=== PATIENT | male | born 1955 | race Caucasian/White ===

== ENCOUNTER 2018-11-05 19:43 | Inpatient (IN) | payer OTHER ==
[~2018-11-05] VITALS: Ht 182.9 cm; Wt 56.3 kg
[~2018-11-05 19:43] MED LIST: ONDA4TAB13 PO; PERCOCET PO; POLY17PO6 PO; RIVA20TA5 PO
[2018-11-06] VITALS (13 sets, daily range): BP systolic 100–117; BP diastolic 65–78; PULSE 95–129; RESP 17–20; Ht 182.9 cm; Wt 56.3 kg
[2018-11-06] MEDS ORDERED: SOD CHLORIDE 0.9% 250 ML IV ONE (02:30)
[2018-11-06] MEDS ORDERED: ZOLPIDEM 5 MG TAB PO PRN (02:30)
[2018-11-06] MEDS ORDERED: CEFTRIAXONE 1 GM/50 ML (PMX) 50 ML IVPB SCH (04:00)
[2018-11-06] MEDS: DEXTROSE 5%-0.45% NACL 1,000 ML IV SCH ×2 (04:00→17:24)
[2018-11-06] MEDS: HYDROCODONE/APAP (10/325) TAB PO PRN (04:09)
[2018-11-06] MEDS ORDERED: PENDING SANTYL ORDER FOR WOUND CARE XX PRN (05:00)
[2018-11-06] MEDS ORDERED: ONDANSETRON 4 MG INJ IV PRN (07:00)
[2018-11-06] MEDS: CREON (24K-76K-120K) 1 CAP PO SCH ×3 (08:00→18:36)
[2018-11-06] MEDS: morphine 2 MG INJ IV PRN ×2 (11:52→22:43)
--- NOTE | 2018-11-06 13:31 | HP ---
Date/Time of Note Date/Time of Note DATE: 11/06/18 TIME: 13:31 Assessment/Plan VTE Prophylaxis [place] [facility] risk: 5 SCD applied (from [facility] Yes Pharmacological prophylaxis: NA/contraindicated, rivaroxaban Pharm contraindication: anticoag not tolerated Lines/Catheters IV Catheter Type (from [facility] Ruiz Central line still needed: Yes Urinary Cath still in place: No Assessment/Plan Hospital Course 1. PAncreatic cancer stage IV, pt has has bone meth. After Neulasta chemotherapy 2. Cachexia. 3. Anemia 4. dehydration 5. right periorbital edema 6. Leucocytosis more likely to # 1, after Neulasta. UA is normal, chest toni is normal 7. S/p ERCP with the stent placement by dr Benavides 8. hx of right inguinal hernia repair 2014 9. Hx of clot in his right leg 10. Hx of hyperbilirubinemia 11. Port a cath right chest 12. DNR status 13. Abnormal liver function test 14.hyperbilirubinemia 15. Hypercalcemia 16. insomnia Assessment/Plan -full liquid diet -reglan scheduled -dr Benavides is GI consult -no need oncology consult -c/w IV fluids -c/w PAin meds. -start full liquid diet -GI proph. start Protonix -DVT proph. pt os on Xarelt due to clot in his right leg Result Diagram: 11/06/18 0459 11/06/18 0459 Results 24hrs Laboratory Tests Test 11/06/18 04:59 White Blood Count 33.2 #H Red Blood Count 2.69 #L Hemoglobin 8.5 #L Hematocrit 24.7 #L Mean Corpuscular Volume 91.8 Mean Corpuscular Hemoglobin 31.6 Mean Corpuscular Hemoglobin Concent 34.4 Red Cell Distribution Width 15.9 #H Platelet Count 44 L Mean Platelet Volume 11.9 #H Immature Granulocytes % 1.500 H Neutrophils % Segmented Neutrophils % (Manual) 92 H Band Neutrophils % (Manual) 1 Lymphocytes % Lymphocytes % (Manual) 1 L Monocytes % Monocytes % (Manual) 6 Eosinophils % Basophils % Nucleated Red Blood Cells % 0.1 H Immature Granulocytes # 0.500 H Neutrophils # Neutrophils # (Manual) 30.6 H Band Neutrophils # 0.3 Lymphocytes (Manual) 0.3 L Lymphocytes # Monocytes # Monocytes # (Manual) 1.9 H Eosinophils # Basophils # Nucleated Red Blood Cells # Pathologist Review (Hematology) YES Toxic Granulation 1+ Platelet Estimate SIG DECREASED Hypochromasia 2+ Poikilocytosis 1+ Anisocytosis 1+ Macrocytosis 1+ Target Cells 1+ Sodium Level 136 Potassium Level 4.0 Chloride Level 102 Carbon Dioxide Level 27 Anion Gap 7 Blood Urea Nitrogen 12 Creatinine 0.33 L Est Glomerular Filtrat Rate mL/min > 60 Glucose Level 70 Calcium Level 10.4 H Total Bilirubin 2.1 H Direct Bilirubin 1.00 H Indirect Bilirubin 1.1 Aspartate Amino Transf (AST/SGOT) 58 H Alanine Aminotransferase (ALT/SGPT) 43 Alkaline Phosphatase 809 H Total Protein 6.2 Albumin 2.2 L Globulin 4.00 H Albumin/Globulin Ratio 0.55 HPI/ROS Admit Date/Time Admit Date/Time November 05, 2018 at 23:47 Hx of Present Illness This 63-year-old male was transferred from [facility] today due to insurance purposes. He has a history of stage IV pancreatic cancer, anemia, dehydration , transaminitis, hyperbilirubinemia and elevated alkaline phosph atase. Patient was diagnosed with pancreatic cancer June 04, 2018. Then he underwent via ERCP a stent placement by Dr. Benavides, he underwent new few courses of chemotherapy the last 1 was of using Neulasta. That was 3 weeks ago. He consequently developed a low platelets, nausea , no appetite and malaise. His oncologist sent him to [facility] due to dehydration. Patient was seen on November 05, 2018 and [facility] was done some studies; blood culture, urine was analyzed and patient was transferred to [facility] of that is his hospital per Insurance. Sepsis was ruled out there. On admission WBC 34.3 RBC 2.68 hemoglobin 8.7 hematocrit 25 platelets 41 sodium 121 potassium 3.8 chloride 95 CO2 25 anion gap 11 BUN 11 creatinine 0.4 blood sugar 114 calcium 10.1 that is elevated total bilirubin 3.6 AST of 48 LDL 36 alkaline phosphatase 8012 total protein 6.5 urinalysis is normal negative for any infection lactic acid 2.3. CT scan shows no acute process, chest x-ray shows no acute process, EKG sinus tachycardia right bundle branch block, no ectopy. Social history denies drugs, any smoking or alcohol intake, Lives with his . Surgical history; ERCP 2018, status post herniorrhaphy by Dr. Bryant 2014. ROS weak Gastrointestinal: pain, diarrhea, nausea; No no complaints, No blood, No constipation, No decreased appetite, No flatus, No passing stool, No vomiting, No other Neurologic: no complaints PMH/Family/Social Past Medical History Medical History: deep vein thrombosis Medications Current Medications Dextrose/Sodium Chloride 1,000 ml @ 75 mls/hr [id number] IV Last administered on 11/06/18at 04:00; Admin Dose 75 MLS/HR; Start 11/06/18 at 02:30 Acetaminophen/ Hydrocodone Bitart ([place] (10/325)) 1 tab Q6H PRN PO MODERATE PAIN LEVEL 4-6 Last administered on 11/06/18at 04:09; Admin Dose 1 TAB; Start 11/06/18 at 02:30 Rivaroxaban (Xarelto) 20 mg WITH DINNER PO ; Start 11/06/18 at 18:00 Zolpidem Tartrate (Ambien) 10 mg HS PRN PO INSOMNIA; Start 11/06/18 at 02:30 Amylase/Lipase/ Protease (Creon ([id number])) 1 cap WITH MEALS PO ; Start 11/06/18 at 08:00 Ceftriaxone Sodium 50 ml @ 100 mls/hr Q24H IVPB Last administered on 11/06/18at 04:05; Admin Dose 100 MLS/HR; Start 11/06/18 at 04:00 Miscellaneous Information (Pending Santyl Order For Wound Care) This patient kingsley... PRN PRN XX WOUND CARE; Start 11/06/18 at 05:00 Ondansetron HCl (Zofran Inj) 4 mg Q6H PRN IV NAUSEA AND/OR VOMITING; Start 11/06/18 at 07:00 Morphine Sulfate (morphine) 2 mg Q4H PRN IV SEVERE PAIN LEVEL 7-10; Start at 12:00 Coded Allergies: No Known Allergy (Unverified , 12/05/14) Past Surgical History Past Surgical Hx: other (ERCP, herniorrhaphy) Family History Significant Family History: no pertinent family hx Social History Alcohol Use: none Smoking Status: Current every day smoker Drug Use: none Exam/Review of Systems Vital Signs Vitals Vital Signs Date Temp Pulse Resp B/P (MAP) Pulse Ox O2 O2 Flow FiO2 Time Delivery Rate 11/06/18 97.5 104 20 111/78 100 11:36 (89) 11/06/18 Room Air 00:41 Exam Constitutional: alert, oriented Eyes: other (right periorbital edema) Respiratory: clear to auscultation Cardiovascular: regular rate and rhythm Gastrointestinal: soft Genitourinary - Male: CVA tenderness; No nl penis, No nl scrotum, No discharge, No other Skin: other (dry lips) JESSIKA ABRAHAM November 06, 2018 13:31
--- NOTE | 2018-11-06 16:52 | CONS ---
DATE OF ADMISSION: 11/05/2018 DATE OF CONSULTATION: HISTORY OF PRESENT ILLNESS: A 63-year-old male with a history of pancreatic cancer, status post bili ken stent, had a chemotherapy by his oncologist. For 3 months, he did not respond to . The pat ient was placed on Neulasta, and because of his profound weakness, patient had gone to [facility] and was subsequently transferred to this facility for further management. Patient has been los ing weight. He is also cachectic. His p.o. intake has been very poor. REVIEW OF SYSTEMS: Negative. ALLERGIES: NONE. MEDICATIONS: All reviewed. PHYSICAL EXAMINATION: VITALS: Stable. HEENT: Unremarkable. NECK: Supple, no thyromegaly, no lymphadenopathy. CARDIOVASCULAR SYSTEM: No murmur, gallop or click. LUNGS: Clear. ABDOMEN: Benign. EXTREMITIES: No edema. CENTRAL NERVOUS SYSTEM: Grossly within normal limits. IMPRESSION: 1. Pancreatic cancer stage IV. Patient is on chemo. 2. Cachexia. 3. Weight loss. 4. Anorexia. 5. Leukocytosis, most probably related to Neulasta, but again cholangitis cannot be absolutely ruled out. 6. Status post ERCP, placement of stent. 7. Port-A-Cath in the right chest. 8. Abnormal LFT. 9. Insomnia. PLAN: At this point, is to continue antibiotic. We will monitor LFT. We will start the patient on Marinol. Megace at this point is contraindicated given the history of DVT. Patient also will be guy juan francisco on TPN. Continue with the Reglan and nutritional supplement. Discussed with the , who was b y the side of the patient. Dictated By: TORIBIO KIRAN/AMY Conf#: [id number] DID#: [id number] CC: MARGARITA JARQUIN MD; ADAM TRINIDAD;*EndCC*
[2018-11-06] MEDS: FAT EMULSION 20% 250 ML IV SCH (17:24)
[2018-11-06] MEDS ORDERED: RIVAROXABAN 20 MG TABLET PO SCH (18:00)
[2018-11-06] MEDS: PANTOPRAZOLE 40 MG INJ IV SCH (18:36)
[2018-11-06] MEDS: METOCLOPRAMIDE 10 MG INJ IV SCH (18:36)
[2018-11-06] MEDS: CEFEPIME 1GM/50 ML (PMX) 50 ML IVPB SCH (20:36)
[2018-11-07] VITALS (12 sets, daily range): BP systolic 95–117; BP diastolic 52–75; PULSE 96–119; RESP 17–18
[2018-11-07] MEDS: HYDROCODONE/APAP (10/325) TAB PO PRN ×4 (03:11→20:48)
[2018-11-07] MEDS: DEXTROSE 5%-0.45% NACL 1,000 ML IV SCH ×3 (05:10→17:33)
[2018-11-07] MEDS: PANTOPRAZOLE 40 MG INJ IV SCH ×2 (05:54→17:33)
[2018-11-07] MEDS: CEFEPIME 1GM/50 ML (PMX) 50 ML IVPB SCH ×2 (08:32→20:46)
[2018-11-07] MEDS: METOCLOPRAMIDE 10 MG INJ IV SCH ×3 (08:32→17:33)
[2018-11-07] MEDS: morphine 2 MG INJ IV PRN (08:32)
[2018-11-07] MEDS: FAT EMULSION 20% 250 ML IV SCH (08:33)
[2018-11-07] MEDS: CREON (24K-76K-120K) 1 CAP PO SCH ×3 (08:33→17:33)
--- NOTE | 2018-11-07 13:18 | PN ---
Date/Time of Note Date/Time of Note DATE: 11/07/18 TIME: 13:18 Assessment/Plan VTE Prophylaxis Risk score (from [facility])>0 risk: 3 SCD applied (from [facility]): Yes Pharmacological prophylaxis: NA/contraindicated Pharm contraindication: anticoag not tolerated Lines/Catheters IV Catheter Type (from [facility]): Ruiz Central line still needed: Yes Urinary Cath still in place: No Assessment/Plan Hospital Course 1. PAncreatic cancer stage IV, pt has has bone meth. After Neulasta chemotherapy 2. Cachexia. 3. Anemia 4. dehydration 5. right periorbital edema more likely to low platelets, pt denied trauma 6. Leucocytosis more likely to # 1, after Neulasta. UA is normal, chest toni is normal 7. S/p ERCP with the stent placement by dr Benavides 8. hx of right inguinal hernia repair 2014 9. Hx of clot in his right leg 10. Hx of hyperbilirubinemia 11. Port a cath right chest 12. DNR status 13. Abnormal liver function test 14. hyperbilirubinemia 15. Hypercalcemia 2/2 to cancer 16. insomnia Assessment/Plan -full liquid diet -start Marinol -EnSUre -c/w FAt emulsion -reglan scheduled -no need for oncology -dr Benavides is GI consult -no need oncology consult -c/w IV fluids -c/w Pain meds. -GI proph. c/w Protonix -DVT proph. unable to tolerate ph. anticoag. due to low platelets SCD bilaterally Result Diagram: 11/07/18 0539 11/07/18 0539 Results 24hrs Laboratory Tests Test 11/07/18 05:39 White Blood Count 30.8 H Red Blood Count 2.63 L Hemoglobin 8.3 L Hematocrit 24.0 L Mean Corpuscular Volume 91.3 Mean Corpuscular Hemoglobin 31.6 Mean Corpuscular Hemoglobin Concent 34.6 Red Cell Distribution Width 16.1 H Platelet Count 62 #L Mean Platelet Volume 12.7 H Immature Granulocytes % 1.300 H Neutrophils % 87.0 H Lymphocytes % 4.2 L Monocytes % 7.2 Eosinophils % 0.1 Basophils % 0.2 Nucleated Red Blood Cells % 0.1 H Immature Granulocytes # 0.400 H Neutrophils # 26.9 H Lymphocytes # 1.3 Monocytes # 2.2 H Eosinophils # 0.0 Basophils # 0.1 Nucleated Red Blood Cells # 0.0 Sodium Level 134 L Potassium Level 3.8 Chloride Level 101 Carbon Dioxide Level 25 Anion Gap 8 Blood Urea Nitrogen 11 Creatinine 0.28 L Est Glomerular Filtrat Rate mL/min > 60 Glucose Level 138 # Calcium Level 10.0 Prealbumin < 3.0 L Subjective 24 Hr Interval Summary Gastrointestinal: constipation, decreased appetite, diarrhea; No no complaints, No pain, No blood, No flatus, No nausea, No passing stool, No vomiting, No other Exam/Review of Systems Exam Vitals Vital Signs Date Temp Pulse Resp B/P (MAP) Pulse Ox O2 O2 Flow FiO2 Time Delivery Rate 11/07/18 98.1 108 17 97/64 (75) 95 11:14 11/06/18 Room Air 00:41 Intake and Output 11/06/18 11/06/18 11/07/18 1515:00 23:00 07:00 IntakeIntake Total 240 ml 400 ml OutputOutput Total 500 ml BalanceBalance 240 ml -100 ml Exam cachectic. Constitutional: alert, oriented Eyes: nl conjunctiva Neck: supple Respiratory: diminished breath sounds Cardiovascular: regular rate and rhythm Gastrointestinal: soft Skin: other (icteric) Results Results 24hrs Laboratory Tests Test 11/07/18 05:39 White Blood Count 30.8 H Red Blood Count 2.63 L Hemoglobin 8.3 L Hematocrit 24.0 L Mean Corpuscular Volume 91.3 Mean Corpuscular Hemoglobin 31.6 Mean Corpuscular Hemoglobin Concent 34.6 Red Cell Distribution Width 16.1 H Platelet Count 62 #L Mean Platelet Volume 12.7 H Immature Granulocytes % 1.300 H Neutrophils % 87.0 H Lymphocytes % 4.2 L Monocytes % 7.2 Eosinophils % 0.1 Basophils % 0.2 Nucleated Red Blood Cells % 0.1 H Immature Granulocytes # 0.400 H Neutrophils # 26.9 H Lymphocytes # 1.3 Monocytes # 2.2 H Eosinophils # 0.0 Basophils # 0.1 Nucleated Red Blood Cells # 0.0 Sodium Level 134 L Potassium Level 3.8 Chloride Level 101 Carbon Dioxide Level 25 Anion Gap 8 Blood Urea Nitrogen 11 Creatinine 0.28 L Est Glomerular Filtrat Rate mL/min > 60 Glucose Level 138 # Calcium Level 10.0 Prealbumin < 3.0 L Medications Medication Current Medications Dextrose/Sodium Chloride 1,000 ml @ 75 mls/hr [id number] IV Last administered on 11/07/18 10:37; Admin Dose 75 MLS/HR; Start 11/06/18 at 02:30 Acetaminophen/ Hydrocodone Bitart ([place] (10/325)) 1 tab Q6H PRN PO MODERATE PAIN LEVEL 4-6 Last administered on 11/07/18 09:42; Admin Dose 1 TAB; Start 11/06/18 at 02:30 Zolpidem Tartrate (Ambien) 10 mg HS PRN PO INSOMNIA; Start 11/06/18 at 02:30 Amylase/Lipase/ Protease (Creon ([id number])) 1 cap WITH MEALS PO Last administered on 11/07/18 12:56; Admin Dose 1 CAP; Start 11/06/18 at 08:00 [facility]isc[facility] This patient kingsley... PRN PRN XX WOUND CARE; Start 11/06/18 at 05:00 Ondansetron HCl (Zofran Inj) 4 mg Q6H PRN IV NAUSEA AND/OR VOMITING; Start 11/06/18 at 07:00 Morphine Sulfate (morphine) 2 mg Q4H PRN IV SEVERE PAIN LEVEL 7-10 Last administered on 11/07/18 08:32; Admin Dose 2 MG; Start 11/06/18 at 12:00 Fat Emulsion Intravenous 250 ml @ 21 mls/hr DAILY IV Last administered on 11/07/18 08:33; Admin Dose 21 MLS/HR; Start 11/06/18 at 16:00 Metoclopramide HCl (Reglan) 5 mg WITH MEALS IV Last administered on 11/07/18 12:56; Admin Dose 5 MG; Start 11/06/18 at 18:00 Pantoprazole (Protonix Iv) 40 mg BID@06,18 IV Last administered on 11/07/18 05:54; Admin Dose 40 MG; Start 11/06/18 at 18:00 Cefepime HCl 50 ml @ 100 mls/hr Q12 IVPB Last administered on 11/07/18 08:32; Admin Dose 100 MLS/HR; Start 11/06/18 at 21:00 JESSIKA ABRAHAM November 07, 2018 13:18
[2018-11-07] MEDS ORDERED: *CONTINUE SAME TPN IV ONE (15:30)
--- NOTE | 2018-11-07 16:07 | CONS ---
Assessment/Plan Assessment/Plan Assessment/Plan (Daily) IMPRESSION: 1. Pancreatic cancer stage IV. Patient is on chemo. 2. Cachexia. 3. Weight loss. 4. Anorexia. 5. Leukocytosis, most probably related to Neulasta, but again cholangitis cannot be absolutely ruled out. 6. Status post ERCP, placement of stent. 7. Port-A-Cath in the right chest. 8. Abnormal LFT. 9. Insomnia. Plan Continue Marinol Intralipid IV Monitor liver function test Nutritional supplement Discussed with the Consultation Date/Type/Reason Admit Date/Time November 05, 2018 at 23:47 Initial Consult Date Date/Time of Note DATE: 11/07/18 TIME: 16:06 24 HR Interval Summary Constitutional: improved Exam/Review of Systems Exam Vitals Vital Signs Date Temp Pulse Resp B/P (MAP) Pulse Ox O2 O2 Flow FiO2 Time Delivery Rate 11/07/18 112 17 107/68 96 16:00 (81) 11/07/18 98.1 11:14 11/06/18 Room Air 00:41 Intake and Output 11/06/18 11/06/18 11/07/18 1414:59 22:59 06:59 IntakeIntake Total 240 ml 400 ml OutputOutput Total 500 ml BalanceBalance 240 ml -100 ml Constitutional: alert, oriented, well developed Psych: no complaints, nl mood/affect Head: normocephalic, atraumatic Eyes: nl conjunctiva, EOMI, nl lids, nl sclera, PERRL ENMT: nl external ears & nose, nl lips & teeth, nl nasal mucosa & septum Neck: supple, non-tender Respiratory: clear to auscultation, normal air movement Cardiovascular: regular rate and rhythm, nl pulses Gastrointestinal: soft, nl liver, spleen, non-tender Musculoskeletal: nl extremities to inspection, nl gait and stance Extremities: normal pulses Neurological: [employer] II-XII intact, nl mental status, nl speech, nl strength Skin: nl turgor; No rash or lesions Lymph: nl lymph nodes Results Result Diagram: 11/07/18 0539 11/07/18 0539 Results 24hrs Laboratory Tests Test 11/07/18 05:39 White Blood Count 30.8 H Red Blood Count 2.63 L Hemoglobin 8.3 L Hematocrit 24.0 L Mean Corpuscular Volume 91.3 Mean Corpuscular Hemoglobin 31.6 Mean Corpuscular Hemoglobin Concent 34.6 Red Cell Distribution Width 16.1 H Platelet Count 62 #L Mean Platelet Volume 12.7 H Immature Granulocytes % 1.300 H Neutrophils % 87.0 H Lymphocytes % 4.2 L Monocytes % 7.2 Eosinophils % 0.1 Basophils % 0.2 Nucleated Red Blood Cells % 0.1 H Immature Granulocytes # 0.400 H Neutrophils # 26.9 H Lymphocytes # 1.3 Monocytes # 2.2 H Eosinophils # 0.0 Basophils # 0.1 Nucleated Red Blood Cells # 0.0 Sodium Level 134 L Potassium Level 3.8 Chloride Level 101 Carbon Dioxide Level 25 Anion Gap 8 Blood Urea Nitrogen 11 Creatinine 0.28 L Est Glomerular Filtrat Rate mL/min > 60 Glucose Level 138 # Calcium Level 10.0 Prealbumin < 3.0 L Medications Medication Current Medications Dextrose/Sodium Chloride 1,000 ml @ 75 mls/hr [id number] IV Last administered on 11/07/18 10:37; Admin Dose 75 MLS/HR; Start 11/06/18 at 02:30 Acetaminophen/ Hydrocodone Bitart ([place] (10/325)) 1 tab Q6H PRN PO MODERATE PAIN LEVEL 4-6 Last administered on 11/07/18 09:42; Admin Dose 1 TAB; Start 11/06/18 at 02:30 Zolpidem Tartrate (Ambien) 10 mg HS PRN PO INSOMNIA; Start 11/06/18 at 02:30 Amylase/Lipase/ Protease (Creon ([id number])) 1 cap WITH MEALS PO Last administered on 11/07/18 12:56; Admin Dose 1 CAP; Start 11/06/18 at 08:00 Miscellaneous Information (Pending Santyl Order For Wound Care) This patient kingsley... PRN PRN XX WOUND CARE; Start 11/06/18 at 05:00 Ondansetron HCl (Zofran Inj) 4 mg Q6H PRN IV NAUSEA AND/OR VOMITING; Start 11/06/18 at 07:00 Morphine Sulfate (morphine) 2 mg Q4H PRN IV SEVERE PAIN LEVEL 7-10 Last ad ministered on 11/07/18at 08:32; Admin Dose 2 MG; Start 11/06/18 at 12:00 Fat Emulsion Intravenous 250 ml @ 21 mls/hr DAILY IV Last administered on 11/07/18at 08:33; Admin Dose 21 MLS/HR; Start 11/06/18 at 16:00 Metoclopramide HCl (Reglan) 5 mg WITH MEALS IV Last administered on 11/07/18at 12:56; Admin Dose 5 MG; Start 11/06/18 at 18:00 Pantoprazole (Protonix Iv) 40 mg BID@06,18 IV Last administered on 11/07/18at 05:54; Admin Dose 40 MG; Start 11/06/18 at 18:00 Cefepime HCl 50 ml @ 100 mls/hr Q12 IVPB Last administered on 11/07/18at 08:32; Admin Dose 100 MLS/HR; Start 11/06/18 at 21:00 Dronabinol (Marinol) 5 mg TID PO ; Start 11/07/18 at 21:00 Miscellaneous Information 1 ea ONCE ONCE IV ; Start 11/07/18 at 15:30; Stop 11/07/18 at 15:31; Status UNV Diagnostic Test (Pha) (Accu-Chek) 1 ea Q4 XX ; Start 11/07/18 at 17:00; Status UNV Total Parenteral Nutrition 1,000 ml @ 0 mls/hr Q0M IV ; Start 11/07/18 at 21:00; Status UNV TORIBIO NGUYEN MD November 07, 2018 16:07
[2018-11-07] MEDS: DRONABINOL 2.5 MG CAP PO SCH (20:48)
[2018-11-07] MEDS ORDERED: TPN 1,000 ML IV SCH (21:00)
[2018-11-08] VITALS (12 sets, daily range): BP systolic 97–116; BP diastolic 60–76; PULSE 75–150; RESP 18–20
[2018-11-08] MEDS: DEXTROSE 5%-0.45% NACL 1,000 ML IV SCH (01:59)
[2018-11-08] MEDS ORDERED: LORAZEPAM 2 MG INJ IV ONE (04:00)
[2018-11-08] MEDS: PANTOPRAZOLE 40 MG INJ IV SCH ×2 (05:33→17:30)
[2018-11-08] MEDS: METOCLOPRAMIDE 10 MG INJ IV SCH ×3 (08:34→17:30)
[2018-11-08] MEDS: CREON (24K-76K-120K) 1 CAP PO SCH ×3 (08:35→17:30)
[2018-11-08] MEDS: FAT EMULSION 20% 250 ML IV SCH (08:45)
[2018-11-08] MEDS: CEFEPIME 1GM/50 ML (PMX) 50 ML IVPB SCH (08:45)
[2018-11-08] MEDS: DRONABINOL 2.5 MG CAP PO SCH ×3 (08:49→20:23)
--- NOTE | 2018-11-08 09:30 | RADRPT ---
Vent Rate: 97 bpm RR Interval: 620 msec IA Interval: 196 msec QRS Duration: 132 msec QT Interval: 397 msec QTC Interval: 504 msec P-R-T [place]: 77 - -62 - 31 degrees Sinus rhythm...normal P axis, V-rate 50- 99 RBBB and LAFB...QRSd >120mS, axis(-40,240) ST elevation, consider inferior injury...ST >0.08mV, II III aVF Prolonged QT interval...QTc >500mS Electronically Signed By: Aftab Thompson
--- NOTE | 2018-11-08 11:29 | QN ---
Documentation Comment Pts primary insurance is [employer] , primary hospitalist are contracted doctors > spoke to Dr Carcamo who will take over case ADAM TRINIDAD MD November 08, 2018 11:28
[2018-11-08] MEDS: TPN 1,000 ML IV SCH (14:33)
[2018-11-08] MEDS ORDERED: TPN 1,000 ML IV SCH (15:00)
--- NOTE | 2018-11-08 15:01 | PN ---
Date/Time of Note Date/Time of Note DATE: 11/08/18 TIME: 14:52 Assessment/Plan VTE [place]axis [place] [facility] [place]: 8 [place] [facility] [place] Yes Pharmacological prophylaxis: NA/contraindicated Pharm contraindication: blood coag disorder Lines/Catheters IV [facility] (from [facility] Port A Cath Assessment/Plan Hospital Course 1. Pancreatic cancer stage IV Patient had been receiving chemotherapy but is currently on hold secondary to poor functional status and cachexia Outpatient follow-up with oncologist Status post ERCP with stent placement GI consultation appreciated 2. Cachexia with debility secondary to pancreatic cancer TPN to be started today PT eval 3. Delirium secondary to comorbidities Monitor 4. Right periorbital edema No clear history of trauma Monitor 5. Leucocytosis likely secondary to Neulasta UA chest x-ray are normal Cultures are negative DC cefepime 6. Hx of DVT 7. Hypercalcemia 2/2 to cancer 8. Bicytopenia with anemia and thrombocytopenia secondary to malignancy Monitor DC planning: Patient with poor functional status, PT eval obtained, TPN to be started today, monitor functional status, consider palliation if patient does not improve in the coming days Result Diagram: 11/08/18 0455 11/08/18 0455 Results 24hrs Laboratory Tests Test 11/07/18 15:56 11/08/18 04:55 Sodium Level 133 L 134 L Potassium Level 4.3 3.5 Chloride Level 102 102 Carbon Dioxide Level 24 25 Anion Gap 7 7 Blood Urea Nitrogen 10 10 Creatinine 0.30 L 0.31 L Est Glomerular Filtrat Rate mL/min > 60 > 60 Glucose Level 95 # 94 Calcium Level 10.0 10.3 H Phosphorus Level 3.0 3.4 Magnesium Level 1.8 1.6 L Total Bilirubin 1.7 H 2.5 H Direct Bilirubin 0.90 H 1.30 H Indirect Bilirubin 0.8 1.2 H Aspartate Amino Transf (AST/SGOT) 72 H 59 H Alanine Aminotransferase (ALT/SGPT) 42 42 Alkaline Phosphatase 663 H 701 H Total Protein 6.1 6.2 Albumin 2.2 L 2.1 L Globulin 3.90 H 4.10 H Albumin/Globulin Ratio 0.56 0.51 Prealbumin < 3.0 L Triglycerides Level 123 White Blood Count 32.1 H Red Blood Count 2.64 L Hemoglobin 8.3 L Hematocrit 23.9 L Mean Corpuscular Volume 90.5 Mean Corpuscular Hemoglobin 31.4 Mean Corpuscular Hemoglobin Concent 34.7 Red Cell Distribution Width 16.5 H Platelet Count 76 #L Mean Platelet Volume 12.2 H Immature Granulocytes % 1.800 H Neutrophils % 88.8 H Lymphocytes % 2.7 L Monocytes % 6.3 Eosinophils % 0.2 Basophils % 0.2 Nucleated Red Blood Cells % 0.0 Immature Granulocytes # 0.590 H Neutrophils # 28.5 H Lymphocytes # 0.9 Monocytes # 2.0 H Eosinophils # 0.1 Basophils # 0.1 Nucleated Red Blood Cells # 0.0 Subjective 24 Hr Interval Summary Constitutional: disoriented Exam/Review of Systems Exam Vitals Vital Signs Date Temp Pulse Resp B/P (MAP) Pulse Ox O2 O2 Flow FiO2 Time Delivery Rate 11/08/18 110 12:01 11/08/18 98.3 20 107/68 98 11:40 (81) 11/06/18 Room Air 00:41 Intake and Output 11/07/18 11/07/18 11/08/18 1515:00 23:00 07:00 IntakeIntake Total 1575 ml 200 ml OutputOutput Total 3 ml 550 ml BalanceBalance 1572 ml -350 ml Constitutional: alert Psych: confusion Respiratory: clear to auscultation Cardiovascular: regular rate and rhythm Gastrointestinal: soft; No distended Musculoskeletal: nl extremities to inspection Results Results 24hrs Laboratory Tests Test 11/07/18 15:56 11/08/18 04:55 Sodium Level 133 L 134 L Potassium Level 4.3 3.5 Chloride Level 102 102 Carbon Dioxide Level 24 25 Anion Gap 7 7 Blood Urea Nitrogen 10 10 Creatinine 0.30 L 0.31 L Est Glomerular Filtrat Rate mL/min > 60 > 60 Glucose Level 95 # 94 Calcium Level 10.0 10.3 H Phosphorus Level 3.0 3.4 Magnesium Level 1.8 1.6 L Total Bilirubin 1.7 H 2.5 H Direct Bilirubin 0.90 H 1.30 H Indirect Bilirubin 0.8 1.2 H Aspartate Amino Transf (AST/SGOT) 72 H 59 H Alanine Aminotransferase (ALT/SGPT) 42 42 Alkaline Phosphatase 663 H 701 H Total Protein 6.1 6.2 Albumin 2.2 L 2.1 L Globulin 3.90 H 4.10 H Albumin/Globulin Ratio 0.56 0.51 Prealbumin < 3.0 L Triglycerides Level 123 White Blood Count 32.1 H Red Blood Count 2.64 L Hemoglobin 8.3 L Hematocrit 23.9 L Mean Corpuscular Volume 90.5 Mean Corpuscular Hemoglobin 31.4 Mean Corpuscular Hemoglobin Concent 34.7 Red Cell Distribution Width 16.5 H Platelet Count 76 #L Mean Platelet Volume 12.2 H Immature Granulocytes % 1.800 H Neutrophils % 88.8 H Lymphocytes % 2.7 L Monocytes % 6.3 Eosinophils % 0.2 Basophils % 0.2 Nucleated Red Blood Cells % 0.0 Immature Granulocytes # 0.590 H Neutrophils # 28.5 H Lymphocytes # 0.9 Monocytes # 2.0 H Eosinophils # 0.1 Basophils # 0.1 Nucleated Red Blood Cells # 0.0 Medications Medication Current Medications Dextrose/Sodium Chloride 1,000 ml @ 75 mls/hr [id number] IV Last administered on 11/08/18 01:59; Admin Dose 75 MLS/HR; Start 11/06/18 at 02:30; Stop 11/08/18 at 15:00 Acetaminophen/ Hydrocodone Bitart ([place] (10/325)) 1 tab Q6H PRN PO MODERATE PAIN LEVEL 4-6 Last administered on 11/07/18at 20:48; Admin Dose 1 TAB; Start 11/06/18 at 02:30 Zolpidem Tartrate (Ambien) 10 mg HS PRN PO INSOMNIA; Start 11/06/18 at 02:30 Amylase/Lipase/ Protease (Creon ([id number])) 1 cap WITH MEALS PO Last administered on 11/08/18at 12:51; Admin Dose 1 CAP; Start 11/06/18 at 08:00 Miscellaneous Information (Pending Santyl Order For Wound Care) This patient kingsley... PRN PRN XX WOUND CARE; Start 11/06/18 at 05:00 Ondansetron HCl (Zofran Inj) 4 mg Q6H PRN IV NAUSEA AND/OR VOMITING; Start 11/06/18 at 07:00 Morphine Sulfate (morphine) 2 mg Q4H PRN IV SEVERE PAIN LEVEL 7-10 Last administered on 11/07/18at 08:32; Admin Dose 2 MG; Start 11/06/18 at 12:00 Fat Emulsion Intravenous 250 ml @ 21 mls/hr DAILY IV Last administered on 11/08/18 08:45; Admin Dose 21 MLS/HR; Start 11/06/18 at 16:00 Metoclopramide HCl (Reglan) 5 mg WITH MEALS IV Last administered on 11/08/18 12:51; Admin Dose 5 MG; Start 11/06/18 at 18:00 Pantoprazole (Protonix Iv) 40 mg BID@06,18 IV Last administered on 11/08/18 05:33; Admin Dose 40 MG; Start 11/06/18 at 18:00 Cefepime HCl 50 ml @ 100 mls/hr Q12 IVPB Last administered on 11/08/18 08:45; Admin Dose 100 MLS/HR; Start 11/06/18 at 21:00 Dronabinol (Marinol) 5 mg TID PO Last administered on 11/08/18 12:51; Admin Dose 5 MG; Start 11/07/18 at 21:00 Diagnostic Test (Pha) (Accu-Chek) 1 ea Q4 XX ; Start 11/08/18 at 17:00 Total Parenteral Nutrition 1,000 ml @ 60 mls/hr [id number] IV Last administered on 11/08/18 14:33; Admin Dose 60 MLS/HR; Start 11/08/18 at 15:00 DEVAN MACE November 08, 2018 15:01
--- NOTE | 2018-11-08 15:44 | CONS ---
Assessment/Plan Assessment/Plan Assessment/Plan (Daily) Assessment/Plan Assessment/Plan Assessment/Plan (Daily) IMPRESSION: 1. Pancreatic cancer stage IV. Patient is on chemo. 2. Cachexia. 3. Weight loss. Malnutrition 4. Anorexia. 5. Leukocytosis, most probably related to Neulasta, but again cholangitis cannot be absolutely ruled out. 6. Status post ERCP, placement of stent. 7. Port-A-Cath in the right chest. 8. Abnormal LFT. Worsening 9. Insomnia. Plan Continue Marinol Intralipid IV Monitor liver function test Nutritional supplement Discussed with the We will get ultrasound of the liver Continue antibiotic monitor WBC count and LFT closely Patient is on TPN now and also taking boost Consultation Date/Type/Reason Admit Date/Time November 05, 2018 at 23:47 Initial Consult Date Date/Time of Note DATE: 11/08/18 TIME: 15:37 24 HR Interval Summary Constitutional: poor po, requiring IVF Exam/Review of Systems Exam Vitals Vital Signs Date Temp Pulse Resp B/P (MAP) Pulse Ox O2 O2 Flow FiO2 Time Delivery Rate 11/08/18 110 12:01 11/08/18 98.3 20 107/68 98 11:40 (81) 11/06/18 Room Air 00:41 Intake and Output 11/07/18 11/07/18 11/08/18 1515:00 23:00 07:00 IntakeIntake Total 1575 ml 200 ml OutputOutput Total 3 ml 550 ml BalanceBalance 1572 ml -350 ml Constitutional: alert, oriented, well developed Psych: no complaints, nl mood/affect Head: normocephalic, atraumatic Eyes: nl conjunctiva, EOMI, nl lids, nl sclera, PERRL ENMT: nl external ears & nose, nl lips & teeth, nl nasal mucosa & septum Neck: supple, non-tender Respiratory: clear to auscultation, normal air movement Cardiovascular: regular rate and rhythm, nl pulses Gastrointestinal: soft, nl liver, spleen, non-tender Musculoskeletal: nl extremities to inspection, nl gait and stance Extremities: normal pulses Neurological: [employer] II-XII intact, nl mental status, nl speech, nl strength Skin: nl turgor; No rash or lesions Lymph: nl lymph nodes Results Result Diagram: 11/08/18 0455 11/08/18 0455 Results 24hrs Laboratory Tests Test 11/07/18 15:56 11/08/18 04:55 Sodium Level 133 L 134 L Potassium Level 4.3 3.5 Chloride Level 102 102 Carbon Dioxide Level 24 25 Anion Gap 7 7 Blood Urea Nitrogen 10 10 Creatinine 0.30 L 0.31 L Est Glomerular Filtrat Rate mL/min > 60 > 60 Glucose Level 95 # 94 Calcium Level 10.0 10.3 H Phosphorus Level 3.0 3.4 Magnesium Level 1.8 1.6 L Total Bilirubin 1.7 H 2.5 H Direct Bilirubin 0.90 H 1.30 H Indirect Bilirubin 0.8 1.2 H Aspartate Amino Transf (AST/SGOT) 72 H 59 H Alanine Aminotransferase (ALT/SGPT) 42 42 Alkaline Phosphatase 663 H 701 H Total Protein 6.1 6.2 Albumin 2.2 L 2.1 L Globulin 3.90 H 4.10 H Albumin/Globulin Ratio 0.56 0.51 Prealbumin < 3.0 L Triglycerides Level 123 White Blood Count 32.1 H Red Blood Count 2.64 L Hemoglobin 8.3 L Hematocrit 23.9 L Mean Corpuscular Volume 90.5 Mean Corpuscular Hemoglobin 31.4 Mean Corpuscular Hemoglobin Concent 34.7 Red Cell Distribution Width 16.5 H Platelet Count 76 #L Mean Platelet Volume 12.2 H Immature Granulocytes % 1.800 H Neutrophils % 88.8 H Lymphocytes % 2.7 L Monocytes % 6.3 Eosinophils % 0.2 Basophils % 0.2 Nucleated Red Blood Cells % 0.0 Immature Granulocytes # 0.590 H Neutrophils # 28.5 H Lymphocytes # 0.9 Monocytes # 2.0 H Eosinophils # 0.1 Basophils # 0.1 Nucleated Red Blood Cells # 0.0 Medications Medication Current Medications Acetaminophen/ Hydrocodone Bitart ([place] (10/325)) 1 tab Q6H PRN PO MODERATE PAIN LEVEL 4-6 Last administered on 11/07/18at 20:48; Admin Dose 1 TAB; Start 11/06/18 at 02:30 Zolpidem Tartrate (Ambien) 10 mg HS PRN PO INSOMNIA; Start 11/06/18 at 02:30 Amylase/Lipase/ Protease (Creon ([id number])) 1 cap WITH MEALS PO Last administered on 11/08/18at 12:51; Admin Dose 1 CAP; Start 11/06/18 at 08:00 Miscellaneous Information (Pending Santyl Order For Wound Care) This patient kingsley... PRN PRN XX WOUND CARE; Start 11/06/18 at 05:00 Ondansetron HCl (Zofran Inj) 4 mg Q6H PRN IV NAUSEA AND/OR VOMITING; Start 11/06/18 at 07:00 Morphine Sulfate (morphine) 2 mg Q4H PRN IV SEVERE PAIN LEVEL 7-10 Last administered on 11/07/18 08:32; Admin Dose 2 MG; Start 11/06/18 at 12:00 Fat Emulsion Intravenous 250 ml @ 21 mls/hr DAILY IV Last administered on 11/08/18 08:45; Admin Dose 21 MLS/HR; Start 11/06/18 at 16:00 Metoclopramide HCl (Reglan) 5 mg WITH MEALS IV Last administered on 11/08/18 12:51; Admin Dose 5 MG; Start 11/06/18 at 18:00 Pantoprazole (Protonix Iv) 40 mg BID@06,18 IV Last administered on 11/08/18 05:33; Admin Dose 40 MG; Start 11/06/18 at 18:00 Dronabinol (Marinol) 5 mg TID PO Last administered on 11/08/18 12:51; Admin Dose 5 MG; Start 11/07/18 at 21:00 Diagnostic Test (Pha) (Accu-Chek) 1 ea Q4 XX ; Start 11/08/18 at 17:00 Total Parenteral Nutrition 1,000 ml @ 60 mls/hr [id number] IV Last administered on 11/08/18 14:33; Admin Dose 60 MLS/HR; Start 11/08/18 at 15:00 TORIBIO NGUYEN MD November 08, 2018 15:44
[2018-11-08] MEDS: ACCU-CHEK XX SCH ×2 (17:27→20:37)
[2018-11-09] VITALS (8 sets, daily range): BP systolic 98–113; BP diastolic 55–76; PULSE 64–128; RESP 18–20
[2018-11-09] MEDS: ACCU-CHEK XX SCH ×6 (01:25→20:35)
[2018-11-09] MEDS: morphine 2 MG INJ IV PRN (03:29)
[2018-11-09] MEDS: PANTOPRAZOLE 40 MG INJ IV SCH ×2 (05:05→17:46)
[2018-11-09] MEDS: CREON (24K-76K-120K) 1 CAP PO SCH ×3 (08:15→17:52)
[2018-11-09] MEDS: FAT EMULSION 20% 250 ML IV SCH (08:15)
[2018-11-09] MEDS: DRONABINOL 2.5 MG CAP PO SCH ×3 (08:15→20:30)
[2018-11-09] MEDS: METOCLOPRAMIDE 10 MG INJ IV SCH ×3 (08:15→17:46)
[2018-11-09] MEDS: HYDROCODONE/APAP (10/325) TAB PO PRN (09:51)
[2018-11-09] MEDS: TPN 1,000 ML IV SCH ×2 (10:23→23:54)
--- NOTE | 2018-11-09 14:28 | PN ---
Date/Time of Note Date/Time of Note DATE: 11/09/18 TIME: 14:26 Assessment/Plan VTE Prophylaxis Risk score (from [facility] [place]0 risk: 10 SCD applied (from [facility]): Yes Pharmacological prophylaxis: NA/contraindicated Pharm contraindication: blood coag disorder Lines/Catheters IV Catheter Type (from [facility]): portacath Assessment/Plan Hospital Course 1. Pancreatic cancer stage IV Patient had been receiving chemotherapy but is currently on hold secondary to poor functional status and cachexia Outpatient follow-up with oncologist Status post ERCP with stent placement GI consultation appreciated Ultrasound of the abdomen shows no CBD dilation Palliative care consultation obtained 2. Cachexia with debility secondary to pancreatic cancer TPN has been started PT eval 3. Delirium secondary to comorbidities Monitor 4. Right periorbital edema No clear history of trauma Monitor 5. Leucocytosis likely secondary to Neulasta UA chest x-ray are normal Cultures are negative DC cefepime 6. Hx of DVT 7. Hypercalcemia 2/2 to cancer 8. Bicytopenia with anemia and thrombocytopenia secondary to malignancy Monitor DC planning: Patient with poor functional status, PT eval obtained,monitor functional status, palliative care consultation obtained Result Diagram: 11/08/18 0455 11/09/18 0603 Results 24hrs Laboratory Tests Test 11/08/18 17:48 11/08/18 20:27 11/09/18 01:23 11/09/18 04:49 Bedside Glucose 165 124 130 135 Test 11/09/18 06:03 11/09/18 09:47 11/09/18 13:45 Sodium Level 134 L Potassium Level 3.7 Chloride Level 102 Carbon Dioxide Level 27 Anion Gap 5 Blood Urea Nitrogen 13 Creatinine 0.31 L Est Glomerular Filtrat > 60 Rate mL/min Glucose Level 121 Calcium Level 10.0 Phosphorus Level 2.5 Magnesium Level 1.9 Bedside Glucose 111 200 Subjective 24 Hr Interval Summary Constitutional: no complaints Exam/Review of Systems Exam Vitals Vital Signs Date Temp Pulse Resp B/P (MAP) Pulse Ox O2 O2 Flow FiO2 Time Delivery Rate 11/09/18 104 12:01 11/09/18 98.2 20 111/66 100 07:34 (81) 11/09/18 Room Air 04:00 Intake and Output 11/08/18 11/08/18 11/09/18 1515:00 23:00 07:00 IntakeIntake Total 50 ml 200 ml OutputOutput Total 300 ml 400 ml BalanceBalance 50 ml -100 ml -400 ml Constitutional: alert, oriented Respiratory: clear to auscultation Cardiovascular: regular rate and rhythm Gastrointestinal: soft; No distended Musculoskeletal: nl extremities to inspection Results Results 24hrs Laboratory Tests Test 11/08/18 17:48 11/08/18 20:27 11/09/18 01:23 11/09/18 04:49 Bedside Glucose 165 124 130 135 Test 11/09/18 06:03 11/09/18 09:47 11/09/18 13:45 Sodium Level 134 L Potassium Level 3.7 Chloride Level 102 Carbon Dioxide Level 27 Anion Gap 5 Blood Urea Nitrogen 13 Creatinine 0.31 L Est Glomerular Filtrat > 60 Rate mL/min Glucose Level 121 Calcium Level 10.0 Phosphorus Level 2.5 Magnesium Level 1.9 Bedside Glucose 111 200 Medications Medication Current Medications Acetaminophen/ Hydrocodone Bitart ([place] (10325)) 1 tab Q6H PRN PO MODERATE PAIN LEVEL 4-6 Last administered on 11/09/18at 09:51; Admin Dose 1 TAB; Start 11/06/18 at 02:30 Zolpidem Tartrate (Ambien) 10 mg HS PRN PO INSOMNIA; Start 11/06/18 at 02:30 Amylase/Lipase/ Protease (Creon ([id number])) 1 cap WITH MEALS PO Last administered on 11/09/18at 12:29; Admin Dose 1 CAP; Start 11/06/18 at 08:00 Miscellaneous Information (Pending [facility] Order For Wound Care) This patient kingsley... PRN PRN XX WOUND CARE; Start 11/06/18 at 05:00 Ondansetron HCl (Zofran Inj) 4 mg Q6H PRN IV NAUSEA AND/OR VOMITING; Start 11/06/18 at 07:00 Morphine Sulfate (morphine) 2 mg Q4H PRN IV SEVERE PAIN LEVEL 7-10 Last adm inistered on 11/09/18at 03:29; Admin Dose 2 MG; Start 11/06/18 at 12:00 Fat Emulsion Intravenous 250 ml @ 21 mls/hr DAILY IV Last administered on 11/09/18at 08:15; Admin Dose 21 MLS/HR; Start 11/06/18 at 16:00 Metoclopramide HCl (Reglan) 5 mg WITH MEALS IV Last administered on 11/09/18 12:29; Admin Dose 5 MG; Start 11/06/18 at 18:00 Pantoprazole (Protonix Iv) 40 mg BID@06,18 IV Last administered on 11/09/18 05:05; Admin Dose 40 MG; Start 11/06/18 at 18:00 Dronabinol (Marinol) 5 mg TID PO Last administered on 11/09/18 12:29; Admin Dose 5 MG; Start 11/07/18 at 21:00 Diagnostic Test (Pha) (Accu-Chek) 1 ea Q4 XX Last administered on 11/09/18 13:54; Admin Dose 1 EA; Start 11/08/18 at 17:00 Total Parenteral Nutrition 1,000 ml @ 60 mls/hr [id number] IV Last administered on 11/09/18 10:23; Admin Dose 60 MLS/HR; Start 11/08/18 at 15:00 DEAVN MACE November 09, 2018 14:28
--- NOTE | 2018-11-09 18:37 | CONS ---
Assessment/Plan Assessment/Plan Assessment/Plan (Daily) Assessment/Plan Assessment/Plan (Daily) IMPRESSION: 1. Pancreatic cancer stage IV. Patient is on chemo. 2. Cachexia. 3. Weight loss. Malnutrition 4. Anorexia. 5. Leukocytosis, most probably related to Neulasta, but again cholangitis cannot be absolutely ruled out. 6. Status post ERCP, placement of stent. 7. Port-A-Cath in the right chest. 8. Abnormal LFT. Worsening 9. Insomnia. Plan Continue Marinol Intralipid IV Monitor liver function test Nutritional supplement Discussed with the We will get ultrasound of the liver Continue antibiotic monitor WBC count and LFT closely Patient is on TPN now and also taking boost Ultrasound of the biliary system did not reveal any dilatation of the bile duct. discussed with the family encourage p.o. feeding Consultation Date/Type/Reason Admit Date/Time November 05, 2018 at 23:47 Initial Consult Date Date/Time of Note DATE: 11/09/18 TIME: 18:36 24 HR Interval Summary Constitutional: poor po Exam/Review of Systems Exam Vitals Vital Signs Date Temp Pulse Resp B/P (MAP) Pulse Ox O2 O2 Flow FiO2 Time Delivery Rate 11/09/18 98.3 64 20 101/68 98 16:15 (79) 11/09/18 Room Air 04:00 Intake and Output 11/08/18 11/08/18 11/09/18 1414:59 22:59 06:59 IntakeIntake Total 50 ml 200 ml OutputOutput Total 300 ml 400 ml BalanceBalance 50 ml -100 ml -400 ml Constitutional: frail Respiratory: clear to auscultation, normal air movement Cardiovascular: regular rate and rhythm Gastrointestinal: soft, nl liver, spleen, non-tender Neurological: lethargic Results Result Diagram: 11/08/18 0455 11/09/18 0603 Results 24hrs Laboratory Tests Test 11/08/18 20:27 11/09/18 01:23 11/09/18 04:49 11/09/18 06:03 Bedside Glucose 124 130 135 Sodium Level 134 L Potassium Level 3.7 Chloride Level 102 Carbon Dioxide Level 27 Anion Gap 5 Blood Urea Nitrogen 13 Creatinine 0.31 L Est Glomerular Filtrat > 60 Rate mL/min Glucose Level 121 Calcium Level 10.0 Phosphorus Level 2.5 Magnesium Level 1.9 Test 11/09/18 09:47 11/09/18 13:45 11/09/18 18:01 Bedside Glucose 111 200 135 Medications Medication Current Medications Acetaminophen/ Hydrocodone Bitart ([place] ()) 1 tab Q6H PRN PO MODERATE PAIN LEVEL 4-6 Last administered on 11/09/18 09:51; Admin Dose 1 TAB; Start 11/06/18 at 02:30 Zolpidem Tartrate (Ambien) 10 mg HS PRN PO INSOMNIA; Start 11/06/18 at 02:30 Amylase/Lipase/ Protease (Creon ([id number])) 1 cap WITH MEALS PO Last administered on 11/09/18 12:29; Admin Dose 1 CAP; Start 11/06/18 at 08:00 Miscellaneous Information (Pending Santyl Order For Wound Care) This patient kingsley... PRN PRN XX WOUND CARE; Start 11/06/18 at 05:00 Ondansetron HCl (Zofran Inj) 4 mg Q6H PRN IV NAUSEA AND/OR VOMITING; Start 11/06/18 at 07:00 Morphine Sulfate (morphine) 2 mg Q4H PRN IV SEVERE PAIN LEVEL 7-10 Last a dministered on 11/09/18 03:29; Admin Dose 2 MG; Start 11/06/18 at 12:00 Fat Emulsion Intravenous 250 ml @ 21 mls/hr DAILY IV Last administered on 11/09/18 08:15; Admin Dose 21 MLS/HR; Start 11/06/18 at 16:00 Metoclopramide HCl (Reglan) 5 mg WITH MEALS IV Last administered on 11/09/18 17:46; Admin Dose 5 MG; Start 11/06/18 at 18:00 Pantoprazole (Protonix Iv) 40 mg BID@06,18 IV Last administered on 11/09/18 17:46; Admin Dose 40 MG; Start 11/06/18 at 18:00 Dronabinol (Marinol) 5 mg TID PO Last administered on 11/09/18 12:29; Admin Dose 5 MG; Start 11/07/18 at 21:00 Diagnostic Test (Pha) (Accu-Chek) 1 ea Q4 XX Last administered on 11/09/18 17:23; Admin Dose 1 EA; Start 11/08/18 at 17:00 Total Parenteral Nutrition 1,000 ml @ 60 mls/hr [id number] IV Last administered on 11/09/18at 10:23; Admin Dose 60 MLS/HR; Start 11/08/18 at 15:00 TORIBIO NGUYEN MD November 09, 2018 18:37
[2018-11-10] VITALS: BP 102/62; PULSE 121; RESP 18
[2018-11-10] MEDS: ACCU-CHEK XX SCH ×4 (01:05→21:00)
[2018-11-10] MEDS: TPN 1,000 ML IV SCH ×2 (01:51→18:57)
[2018-11-10 04:16] VITALS: BP 97/66; PULSE 107; RESP 18
[2018-11-10] MEDS: PANTOPRAZOLE 40 MG INJ IV SCH ×2 (05:21→18:07)
[2018-11-10 06:58] VITALS: BP 111/69; PULSE 111; RESP 22
--- NOTE | 2018-11-10 07:22 | CONS ---
Consultation Date/Type/Reason Admit Date/Time November 05, 2018 at 23:47 Date/Time of Note DATE: 11/10/18 TIME: 07:10 Hx of Present Illness Brief dictation Dragon dictation is down.. History of stage 4 pancreatic cancer. S/P multiple rounds of chemo Malnutrition, dehydration failure to thrive Transaminitis Family members at the bedside. They are realistic that patient is failing and close to . They had multiple questions about pain, lethargy,length of life , suffering. Pt is a DNR Oncology consult pending. I will follow pt andd primarily support family. Full PC consult to follow after system is up. Subjective hx not possible: pt non-verbal Past Medical History Medical History: deep vein thrombosis Home Meds Active Scripts Ondansetron Hcl* (Zofran*) 4 Mg Tab, 4 MG PO Q4H PRN for NAUSEA AND OR VOMITING, #60 TAB Prov:MELODIE ROSADO MD 12/09/14 Polyethylene Glycol* (Miralax*) 17 Gm/Pkt Liq, 17 GM PO DAILY, #30 PACKET Prov:MELODIE ROSADO MD 12/09/14 Oxycodone Hcl/Acetaminophen (Percocet) 1 Tab Tab, 1 TAB PO Q6 PRN for PAIN, #30 TAB Prov:MELODIE ROSADO MD 12/09/14 Reported Medications Rivaroxaban* (Xarelto*) 20 Mg Tablet, 20 MG PO WITH DINNER, TAB 08/17/14 Medications Current Medications Acetaminophen/ Hydrocodone Bitart ([place] (10/325)) 1 tab Q6H PRN PO MODERATE PAIN LEVEL 4-6 Last administered on 11/09/18at 09:51; Admin Dose 1 TAB; Start 11/06/18 at 02:30 Zolpidem Tartrate (Ambien) 10 mg HS PRN PO INSOMNIA; Start 11/06/18 at 02:30 Amylase/Lipase/ Protease (Creon ([id number])) 1 cap WITH MEALS PO Last administered on 11/09/18at 12:29; Admin Dose 1 CAP; Start 11/06/18 at 08:00 Miscellaneous Information (Pending [facility] Order For Wound Care) This patient kingsley... PRN PRN XX WOUND CARE; Start 11/06/18 at 05:00 Ondansetron HCl (Zofran Inj) 4 mg Q6H PRN IV NAUSEA AND/OR VOMITING; Start 11/06/18 at 07:00 Morphine Sulfate (morphine) 2 mg Q4H PRN IV SEVERE PAIN LEVEL 7-10 Last administered on 11/09/18 03:29; Admin Dose 2 MG; Start 11/06/18 at 12:00 Fat Emulsion Intravenous 250 ml @ 21 mls/hr DAILY IV Last administered on 11/09/18 08:15; Admin Dose 21 MLS/HR; Start 11/06/18 at 16:00 Metoclopramide HCl (Reglan) 5 mg WITH MEALS IV Last administered on 11/09/18 17:46; Admin Dose 5 MG; Start 11/06/18 at 18:00 Pantoprazole (Protonix Iv) 40 mg BID@06,18 IV Last administered on 11/10/18 05:21; Admin Dose 40 MG; Start 11/06/18 at 18:00 Dronabinol (Marinol) 5 mg TID PO Last administered on 11/09/18 12:29; Admin Dose 5 MG; Start 11/07/18 at 21:00 Diagnostic Test (Pha) (Accu-Chek) 1 ea Q4 XX Last administered on 11/10/18 05:12; Admin Dose 1 EA; Start 11/08/18 at 17:00 Total Parenteral Nutrition 1,000 ml @ 60 mls/hr [id number] IV Last administered on 11/10/18 01:51; Admin Dose 60 MLS/HR; Start 11/08/18 at 15:00 Allergies: Coded Allergies: No Known Allergy (Unverified , 12/05/14) Past Surgical History Past Surgical Hx: other (ERCP, herniorrhaphy) Social History Alcohol Use: none Smoking Status: Unknown if ever smoked Drug Use: none Exam/Review of Systems Exam Vitals Vital Signs Date Temp Pulse Resp B/P (MAP) Pulse Ox O2 O2 Flow FiO2 Time Delivery Rate 11/10/18 98.5 111 22 111/69 99 Room Air 06:58 (83) Intake and Output 11/09/18 11/09/18 11/10/18 1515:00 23:00 07:00 IntakeIntake Total 1000 ml 200 ml OutputOutput Total 350 ml BalanceBalance 1000 ml -150 ml Constitutional: non-verbal Head: normocephalic, atraumatic Neurological: lethargic, other (non communicative, lethargic , move spontaneously cannot do an adequate exam secondary to pain.) Results Result Diagram: 11/08/18 0455 11/09/18 0603 Results 24hrs Laboratory Tests Test 11/09/18 09:47 11/09/18 13:45 11/09/18 18:01 11/09/18 20:34 Bedside Glucose 111 200 135 115 Test 11/10/18 00:30 11/10/18 04:44 Bedside Glucose 118 130 Medications Medication Current Medications Acetaminophen/ Hydrocodone Bitart ([place] ()) 1 tab Q6H PRN PO MODERATE PAIN LEVEL 4-6 Last administered on 11/09/18 09:51; Admin Dose 1 TAB; Start 11/06/18 at 02:30 Zolpidem Tartrate (Ambien) 10 mg HS PRN PO INSOMNIA; Start 11/06/18 at 02:30 Amylase/Lipase/ Protease (Creon ([id number])) 1 cap WITH MEALS PO Last administered on 11/09/18 12:29; Admin Dose 1 CAP; Start 11/06/18 at 08:00 Miscellaneous Information (Pending [facility] Order For Wound Care) This patient kingsley... PRN PRN XX WOUND CARE; Start 11/06/18 at 05:00 Ondansetron HCl (Zofran Inj) 4 mg Q6H PRN IV NAUSEA AND/OR VOMITING; Start 11/06/18 at 07:00 Morphine Sulfate (morphine) 2 mg Q4H PRN IV SEVERE PAIN LEVEL 7-10 Last administered on 11/09/18 03:29; Admin Dose 2 MG; Start 11/06/18 at 12:00 Fat Emulsion Intravenous 250 ml @ 21 mls/hr DAILY IV Last administered on 11/09/18 08:15; Admin Dose 21 MLS/HR; Start 11/06/18 at 16:00 Metoclopramide HCl (Reglan) 5 mg WITH MEALS IV Last administered on 11/09/18 17:46; Admin Dose 5 MG; Start 11/06/18 at 18:00 Pantoprazole (Protonix Iv) 40 mg BID@06,18 IV Last administered on 11/10/18 05:21; Admin Dose 40 MG; Start 11/06/18 at 18:00 Dronabinol (Marinol) 5 mg TID PO Last administered on 11/09/18at 12:29; Admin Dose 5 MG; Start 11/07/18 at 21:00 Diagnostic Test (Pha) (Accu-Chek) 1 ea Q4 XX Last administered on 11/10/18 05:12; Admin Dose 1 EA; Start 11/08/18 at 17:00 Total Parenteral Nutrition 1,000 ml @ 60 mls/hr [id number] IV Last administered on 11/10/18at 01:51; Admin Dose 60 MLS/HR; Start 11/08/18 at 15:00 SPRING RASHEED November 10, 2018 07:21
--- NOTE | 2018-11-10 08:38 | CONS ---
Assessment/Plan Assessment/Plan Hospital Course (Demo Recall) 63 yo male, s/p fall with failure to thrive Interval hx: Denies abd pain, denies nausea, States he had bm yesterday but no bm charted since admission. WBC stable in low 30s. No LFTs drawn since 11/08. HH stable. 1. Pancreatic cancer stage IV. Patient is on chemo. 2. Cachexia. 3. Weight loss. Malnutrition 4. Anorexia. 5. Leukocytosis, most probably related to Neulasta, but again cholangitis cannot be absolutely ruled out. 6. Status post ERCP, placement of stent. 7. Chronic liver disease 8. Abnormal LFT. -trending up -denies abd pain -Ultrasound of the biliary system shows CBD to be 4.5 mm 9. Insomnia. US of liver: Moderately distended gallbladder with a large amount of echogenic material within it suspicious for sludge versus a possible mass. Associated gallbladder wall thickening. Small amount of ascites. Heterogeneous liver, consistent with chronic liver disease. Small hypoechoic areas in the liver, incompletely characterized. Liver masses cannot be excluded. Plan MRCP AFP Amitiza 24 mcg PO BID Continue Marinol, Reglan, TPN and intralipids IV, nutritional supplementation, Monitor LFTs, LFTs in am Monitor WBC Pt examined and plan of care discussed with Dr. Benavides Consultation Date/Type/Reason Admit Date/Time November 05, 2018 at 23:47 Initial Consult Date Date/Time of Note DATE: 11/10/18 TIME: 08:26 Exam/Review of Systems Exam Vitals Vital Signs Date Temp Pulse Resp B/P (MAP) Pulse Ox O2 O2 Flow FiO2 Time Delivery Rate 11/10/18 98.5 111 22 111/69 99 Room Air 06:58 (83) Intake and Output 11/09/18 11/09/18 11/10/18 1515:00 23:00 07:00 IntakeIntake Total 1000 ml 200 ml OutputOutput Total 350 ml BalanceBalance 1000 ml -150 ml Constitutional: alert Psych: no complaints Head: normocephalic Eyes: PERRL, icteric, other (rt eye ecchymosis) Respiratory: clear to auscultation Cardiovascular: regular rate and rhythm Gastrointestinal: soft, non-tender Musculoskeletal: muscle weakness Neurological: confused Skin: ecchymosis Results Result Diagram: 11/08/18 0455 11/09/18 0603 Results 24hrs Laboratory Tests Test 11/09/18 09:47 11/09/18 13:45 11/09/18 18:01 11/09/18 20:34 Bedside Glucose 111 200 135 115 Test 11/10/18 00:30 11/10/18 04:44 Bedside Glucose 118 130 Medications Medication Current Medications Acetaminophen/ Hydrocodone Bitart ([place] ()) 1 tab Q6H PRN PO MODERATE PAIN LEVEL 4-6 Last administered on 11/09/18 09:51; Admin Dose 1 TAB; Start 11/06/18 at 02:30 Zolpidem Tartrate (Ambien) 10 mg HS PRN PO INSOMNIA; Start 11/06/18 at 02:30 Amylase/Lipase/ Protease (Creon ([id number])) 1 cap WITH MEALS PO Last ad ministered on 11/09/18 12:29; Admin Dose 1 CAP; Start 11/06/18 at 08:00 Miscellaneous Information [facility] This patient kingsley... PRN PRN XX WOUND CARE; Start 11/06/18 at 05:00 Ondansetron HCl (Zofran Inj) 4 mg Q6H PRN IV NAUSEA AND/OR VOMITING; Start 11/06/18 at 07:00 Morphine Sulfate (morphine) 2 mg Q4H PRN IV SEVERE PAIN LEVEL 7-10 Last administered on 11/09/18 03:29; Admin Dose 2 MG; Start 11/06/18 at 12:00 Fat Emulsion Intravenous 250 ml @ 21 mls/hr DAILY IV Last administered on 11/09/18 08:15; Admin Dose 21 MLS/HR; Start 11/06/18 at 16:00 Metoclopramide HCl (Reglan) 5 mg WITH MEALS IV Last administered on 11/09/18 17:46; Admin Dose 5 MG; Start 11/06/18 at 18:00 Pantoprazole (Protonix Iv) 40 mg BID@06,18 IV Last administered on 11/10/18 05:21; Admin Dose 40 MG; Start 11/06/18 at 18:00 Dronabinol (Marinol) 5 mg TID PO Last administered on 11/09/18 12:29; Admin Dose 5 MG; Start 11/07/18 at 21:00 Total Parenteral Nutrition 1,000 ml @ 60 mls/hr [id number] IV Last administered on 11/10/18at 01:51; Admin Dose 60 MLS/HR; Start 11/08/18 at 15:00 Diagnostic Test (Pha) (Accu-Chek) 1 ea Q12 XX ; Start 11/10/18 at 09:00 ASH RITTER November 10, 2018 08:38
[2018-11-10] MEDS: DRONABINOL 2.5 MG CAP PO SCH ×2 (09:39→12:32)
[2018-11-10] MEDS: LUBIPROSTONE 24 MCG CAP PO SCH ×2 (09:40→21:00)
[2018-11-10] MEDS: METOCLOPRAMIDE 10 MG INJ IV SCH ×3 (09:42→18:07)
[2018-11-10] MEDS: CREON (24K-76K-120K) 1 CAP PO SCH ×3 (09:42→18:08)
[2018-11-10] MEDS: FAT EMULSION 20% 250 ML IV SCH (09:45)
[2018-11-10] MEDS ORDERED: MAGNESIUM CITRATE 300 ML BTL PO ONE (11:00)
[2018-11-10] MEDS: morphine 2 MG INJ IV PRN (11:06)
[2018-11-10 12:59] VITALS: BP 97/56; PULSE 121; RESP 20
--- NOTE | 2018-11-10 14:32 | PN ---
Date/Time of Note Date/Time of Note DATE: 11/10/18 TIME: 14:31 Assessment/Plan VTE Prophylaxis [place] [facility] risk: 10 SCD applied [place] [facility] Yes Pharmacological prophylaxis: NA/contraindicated Pharm contraindication: blood coag disorder Lines/Catheters IV [facility] Assessment/Plan Hospital Course 1. Pancreatic cancer stage IV Patient had been receiving chemotherapy but is currently on hold secondary to poor functional status and cachexia Outpatient follow-up with oncologist Status post ERCP with stent placement GI consultation appreciated Ultrasound of the abdomen shows no CBD dilation Palliative care consultation appreciated 2. Cachexia with debility secondary to pancreatic cancer TPN has been started PT eval 3. Delirium secondary to comorbidities Monitor 4. Right periorbital edema No clear history of trauma Monitor 5. Leucocytosis likely secondary to Neulasta UA chest x-ray are normal Cultures are negative 6. Hx of DVT 7. Hypercalcemia 2/2 to cancer 8. Bicytopenia with anemia and thrombocytopenia secondary to malignancy Monitor DC planning: Patient with poor functional status with inability to ambulate, palliative care consultation appreciated, continue further discussion with family about goals of care Result Diagram: 11/08/18 0455 11/09/18 0603 Results 24hrs Laboratory Tests Test 11/09/18 18:01 11/09/18 20:34 11/10/18 00:30 11/10/18 04:44 Bedside Glucose 135 115 118 130 Test 11/10/18 09:24 11/10/18 09:37 Alpha Fetoprotein 1.42 Bedside Glucose 132 Subjective 24 Hr Interval Summary Constitutional: disoriented Exam/Review of Systems Exam Vitals Vital Signs Date Temp Pulse Resp B/P (MAP) Pulse Ox O2 O2 Flow FiO2 Time Delivery Rate 11/10/18 99.1 121 20 97/56 (70) 100 12:59 11/10/18 Room Air 06:58 Intake and Output 11/09/18 11/09/18 11/10/18 1414:59 22:59 06:59 IntakeIntake Total 1000 ml 200 ml OutputOutput Total 350 ml BalanceBalance 1000 ml -150 ml Psych: confusion Respiratory: clear to auscultation Cardiovascular: regular rate and rhythm Gastrointestinal: soft; No distended Musculoskeletal: nl extremities to inspection Results Results 24hrs Laboratory Tests Test 11/09/18 18:01 11/09/18 20:34 11/10/18 00:30 11/10/18 04:44 Bedside Glucose 135 115 118 130 Test 11/10/18 09:24 11/10/18 09:37 Alpha Fetoprotein 1.42 Bedside Glucose 132 Medications Medication Current Medications Acetaminophen/ Hydrocodone Bitart ([place] ()) 1 tab Q6H PRN PO MODERATE PAIN LEVEL 4-6 Last administered on 11/09/18 09:51; Admin Dose 1 TAB; Start 11/06/18 at 02:30 Zolpidem Tartrate (Ambien) 10 mg HS PRN PO INSOMNIA; Start 11/06/18 at 02:30 Amylase/Lipase/ Protease (Creon ([id number])) 1 cap WITH MEALS PO Last administered on 11/10/18 12:32; Admin Dose 1 CAP; Start 11/06/18 at 08:00 Miscellaneous Information (Pending [facility] Order For Wound Care) This patient kingsley... PRN PRN XX WOUND CARE; Start 11/06/18 at 05:00 Ondansetron HCl (Zofran Inj) 4 mg Q6H PRN IV NAUSEA AND/OR VOMITING; Start 11/06/18 at 07:00 Morphine Sulfate (morphine) 2 mg Q4H PRN IV SEVERE PAIN LEVEL 7-10 Last administered on 11/10/18 11:06; Admin Dose 2 MG; Start 11/06/18 at 12:00 Fat Emulsion Intravenous 250 ml @ 21 mls/hr DAILY IV Last administered on 11/10/18 09:45; Admin Dose 21 MLS/HR; Start 11/06/18 at 16:00 Metoclopramide HCl (Reglan) 5 mg WITH MEALS IV Last administered on 11/10/18 12:32; Admin Dose 5 MG; Start 11/06/18 at 18:00 Pantoprazole (Protonix Iv) 40 mg BID@06,18 IV Last administered on 11/10/18 05:21; Admin Dose 40 MG; Start 11/06/18 at 18:00 Dronabinol (Marinol) 5 mg TID PO Last administered on 11/10/18 12:32; Admin Dose 5 MG; Start 11/07/18 at 21:00 Total Parenteral Nutrition 1,000 ml @ 60 mls/hr [id number] IV Last administered on 11/10/18 01:51; Admin Dose 60 MLS/HR; Start 11/08/18 at 15:00 Diagnostic Test (Pha) (Accu-Chek) 1 ea Q12 XX Last administered on 11/10/18 09:37; Admin Dose 1 EA; Start 11/10/18 at 09:00 Lubiprostone (Amitiza) 24 mcg BID PO Last administered on 11/10/18at 09:40; Admin Dose 24 MCG; Start 11/10/18 at 09:00 DEVAN MACE November 10, 2018 14:32
[2018-11-10 20:05] VITALS: BP 106/69; PULSE 116; RESP 16
[2018-11-11] MEDS: PANTOPRAZOLE 40 MG INJ IV SCH ×2 (06:00→18:25)
[2018-11-11 07:47] VITALS: BP 119/77; PULSE 113; RESP 18
[2018-11-11] MEDS: CREON (24K-76K-120K) 1 CAP PO SCH ×3 (07:50→17:55)
[2018-11-11] MEDS: FAT EMULSION 20% 250 ML IV SCH (08:40)
[2018-11-11] MEDS: METOCLOPRAMIDE 10 MG INJ IV SCH ×3 (08:40→18:25)
[2018-11-11] MEDS: ACCU-CHEK XX SCH ×2 (08:43→21:00)
[2018-11-11] MEDS: LUBIPROSTONE 24 MCG CAP PO SCH ×2 (09:00→21:00)
[2018-11-11] MEDS: TPN 1,000 ML IV SCH (12:53)
--- NOTE | 2018-11-11 13:15 | CONS ---
Assessment/Plan Assessment/Plan Hospital Course (Demo Recall) 63 yo male, s/p fall with failure to thrive Interval hx: Denies abd pain, denies nausea, . WBC stable in low 30s. HH stable. LFTS downtrending but still elevated. RN put pt on 2 L NC because she felt he was having hard time breathing. [id number] okay. per RN had trouble swallowing pills and continues to have diarrhea 1. Pancreatic cancer stage IV. Patient is on chemo. 2. Cachexia. 3. Weight loss. Malnutrition 4. Anorexia. 5. Leukocytosis, most probably related to Neulasta, but again cholangitis cannot be absolutely ruled out. 6. Status post ERCP, placement of stent. 7. Chronic liver disease 8. Abnormal LFT. -trending up -denies abd pain -Ultrasound of the biliary system shows CBD to be 4.5 mm -AFP wnl -MRCP shows Multiple hepatic T2 bright lesions, over 20 which may represent metastatic disease or multifocal HCC. Recommend follow-up imaging with liver mass protocol MRI. 9. Insomnia. 10. diarrhea MRCP: IMPRESSION: Multiple hepatic T2 bright lesions, over 20 which may represent metastatic disease or multifocal HCC. Recommend follow-up imaging with liver mass protocol MRI. Gallbladder is distended with layering debris representing sludge or small stone s. No evidence of biliary duct obstruction. Mild ascites. Plan Swallow evaluation questran 1 packet qd Per child and family therapist is considering hospice Amitiza 24 mcg PO BID Continue Marinol, Reglan, TPN and intralipids IV, nutritional supplementation, Monitor LFTs, LFTs in am Monitor WBC Pt examined and plan of care discussed with Dr. Benavides Consultation Date/Type/Reason Admit Date/Time November 05, 2018 at 23:47 Initial Consult Date Date/Time of Note DATE: 11/11/18 TIME: 13:10 Exam/Review of Systems Exam Vitals Vital Signs Date Temp Pulse Resp B/P (MAP) Pulse Ox O2 O2 Flow FiO2 Time Delivery Rate 11/11/18 97.3 113 18 119/77 97 07:47 (91) 11/10/18 Room Air 20:05 Intake and Output 11/10/18 11/10/18 11/11/18 1515:00 23:00 07:00 IntakeIntake Total 120 ml 2210 ml OutputOutput Total 500 ml 800 ml BalanceBalance -380 ml 2210 ml -800 ml Constitutional: alert Psych: no complaints Head: normocephalic Eyes: other (ecchymosis rt oribital area) Respiratory: normal air movement Cardiovascular: regular rate and rhythm Gastrointestinal: soft, non-tender Neurological: nl mental status Results Result Diagram: 11/08/18 0455 11/11/18 0458 Results 24hrs Laboratory Tests Test 11/11/18 04:58 11/11/18 08:42 Sodium Level 136 Potassium Level 3.9 Chloride Level 105 Carbon Dioxide Level 27 Anion Gap 4 L Blood Urea Nitrogen 18 Creatinine 0.29 L Est Glomerular Filtrat Rate mL/min > 60 Glucose Level 133 Calcium Level 10.5 H Phosphorus Level 2.8 Magnesium Level 2.0 Total Bilirubin 2.0 H Direct Bilirubin 1.10 H Indirect Bilirubin 0.9 Aspartate Amino Transf (AST/SGOT) 81 H Alanine Aminotransferase (ALT/SGPT) 54 Alkaline Phosphatase 530 H Total Protein 5.5 L Albumin 1.8 L Globulin 3.70 H Albumin/Globulin Ratio 0.48 Bedside Glucose 157 Medications Medication Current Medications Acetaminophen/ Hydrocodone Bitart ([place] ([id number])) 1 tab Q6H PRN PO MODERATE PAIN LEVEL 4-6 Last administered on 11/09/18at 09:51; Admin Dose 1 TAB; Start 11/06/18 at 02:30 Zolpidem Tartrate (Ambien) 10 mg HS PRN PO INSOMNIA; Start 11/06/18 at 02:30 Amylase/Lipase/ Protease (Creon ([id number])) 1 cap WITH MEALS PO Last administered on 11/10/18at 18:08; Admin Dose 1 CAP; Start 11/06/18 at 08:00 Miscellaneous Information (Pending [facility] Order For Wound Care) This patient kingsley... PRN PRN XX WOUND CARE; Start 11/06/18 at 05:00 Ondansetron HCl (Zofran Inj) 4 mg Q6H PRN IV NAUSEA AND/OR VOMITING; Start 11/06/18 at 07:00 Morphine Sulfate (morphine) 2 mg Q4H PRN IV SEVERE PAIN LEVEL 7-10 Last administered on 11/10/18at 11:06; Admin Dose 2 MG; Start 11/06/18 at 12:00 Fat Emulsion Intravenous 250 ml @ 21 mls/hr DAILY IV Last administered on 11/11/18 08:40; Admin Dose 21 MLS/HR; Start 11/06/18 at 16:00 Metoclopramide HCl (Reglan) 5 mg WITH MEALS IV Last administered on 11/11/18 12:54; Admin Dose 5 MG; Start 11/06/18 at 18:00 Pantoprazole (Protonix Iv) 40 mg BID@06,18 IV Last administered on 11/10/18 18:07; Admin Dose 40 MG; Start 11/06/18 at 18:00 Total Parenteral Nutrition 1,000 ml @ 65 mls/hr [id number] IV Last administered on 11/11/18 12:53; Admin Dose 65 MLS/HR; Start 11/08/18 at 15:00 Diagnostic Test (Pha) (Accu-Chek) 1 ea Q12 XX Last administered on 11/11/18 08:43; Admin Dose 1 EA; Start 11/10/18 at 09:00 Lubiprostone (Amitiza) 24 mcg BID PO Last administered on 11/10/18 09:40; Admin Dose 24 MCG; Start 11/10/18 at 09:00 ASH RITTER November 11, 2018 13:15
--- NOTE | 2018-11-11 14:41 | PN ---
Date/Time of Note Date/Time of Note DATE: 11/11/18 TIME: 14:40 Assessment/Plan VTE Prophylaxis Risk score (from [facility])>0 risk: 7 SCD applied (from [facility]): Yes Pharmacological prophylaxis: NA/contraindicated Pharm contraindication: other Assessment/Plan Hospital Course 1. Pancreatic cancer stage IV Patient had been receiving chemotherapy but is currently on hold secondary to poor functional status and cachexia Have spoken to patient's and she is agreeable for direct care worker arranging for hospice Status post ERCP with stent placement GI consultation appreciated Ultrasound of the abdomen shows no CBD dilation Palliative care consultation appreciated 2. Cachexia with debility secondary to pancreatic cancer TPN has been started PT eval 3. Delirium secondary to comorbidities Monitor 4. Right periorbital edema No clear history of trauma Monitor 5. Leucocytosis likely secondary to Neulasta UA chest x-ray are normal Cultures are negative 6. Hx of DVT 7. Hypercalcemia 2/2 to cancer 8. Bicytopenia with anemia and thrombocytopenia secondary to malignancy Monitor DC planning: Patient with poor functional status with inability to ambulate, palliative care consultation appreciated, follow-up with hospice eval Result Diagram: 11/08/18 0455 11/11/18 0458 Results 24hrs Laboratory Tests Test 11/11/18 04:58 11/11/18 08:42 Sodium Level 136 Potassium Level 3.9 Chloride Level 105 Carbon Dioxide Level 27 Anion Gap 4 L Blood Urea Nitrogen 18 Creatinine 0.29 L Est Glomerular Filtrat Rate mL/min > 60 Glucose Level 133 Calcium Level 10.5 H Phosphorus Level 2.8 Magnesium Level 2.0 Total Bilirubin 2.0 H Direct Bilirubin 1.10 H Indirect Bilirubin 0.9 Aspartate Amino Transf (AST/SGOT) 81 H Alanine Aminotransferase (ALT/SGPT) 54 Alkaline Phosphatase 530 H Total Protein 5.5 L Albumin 1.8 L Globulin 3.70 H Albumin/Globulin Ratio 0.48 Bedside Glucose 157 Subjective 24 Hr Interval Summary Constitutional: no complaints Exam/Review of Systems Exam Vitals Vital Signs Date Temp Pulse Resp B/P (MAP) Pulse Ox O2 O2 Flow FiO2 Time Delivery Rate 11/11/18 97.3 113 18 119/77 97 07:47 (91) 11/10/18 Room Air 20:05 Intake and Output 11/10/18 11/10/18 11/11/18 1515:00 23:00 07:00 IntakeIntake Total 120 ml 2210 ml OutputOutput Total 500 ml 800 ml BalanceBalance -380 ml 2210 ml -800 ml Psych: confusion Respiratory: clear to auscultation Cardiovascular: regular rate and rhythm Gastrointestinal: soft; No distended Musculoskeletal: nl extremities to inspection Results Results 24hrs Laboratory Tests Test 11/11/18 04:58 11/11/18 08:42 Sodium Level 136 Potassium Level 3.9 Chloride Level 105 Carbon Dioxide Level 27 Anion Gap 4 L Blood Urea Nitrogen 18 Creatinine 0.29 L Est Glomerular Filtrat Rate mL/min > 60 Glucose Level 133 Calcium Level 10.5 H Phosphorus Level 2.8 Magnesium Level 2.0 Total Bilirubin 2.0 H Direct Bilirubin 1.10 H Indirect Bilirubin 0.9 Aspartate Amino Transf (AST/SGOT) 81 H Alanine Aminotransferase (ALT/SGPT) 54 Alkaline Phosphatase 530 H Total Protein 5.5 L Albumin 1.8 L Globulin 3.70 H Albumin/Globulin Ratio 0.48 Bedside Glucose 157 Medications Medication Current Medications Acetaminophen/ Hydrocodone Bitart ([place] ()) 1 tab Q6H PRN PO MODERATE PAIN LEVEL 4-6 Last administered on 11/09/18at 09:51; Admin Dose 1 TAB; Start 11/06/18 at 02:30 Zolpidem Tartrate (Ambien) 10 mg HS PRN PO INSOMNIA; Start 11/06/18 at 02:30 Amylase/Lipase/ Protease (Creon ([id number])) 1 cap WITH MEALS PO Last administered on 11/10/18at 18:08; Admin Dose 1 CAP; Start 11/06/18 at 08:00 Miscellaneous Information (Pending [facility] Order For Wound Care) This patient kingsley... PRN PRN XX WOUND CARE; Start 11/06/18 at 05:00 Ondansetron HCl (Zofran Inj) 4 mg Q6H PRN IV NAUSEA AND/OR VOMITING; Start 11/06/18 at 07:00 Morphine Sulfate (morphine) 2 mg Q4H PRN IV SEVERE PAIN LEVEL 7-10 Last administered on 11/10/18at 11:06; Admin Dose 2 MG; Start 11/06/18 at 12:00 Fat Emulsion Intravenous 250 ml @ 21 mls/hr DAILY IV Last administered on 11/11/18at 08:40; Admin Dose 21 MLS/HR; Start 11/06/18 at 16:00 Metoclopramide HCl (Reglan) 5 mg WITH MEALS IV Last administered on 11/11/18 12:54; Admin Dose 5 MG; Start 11/06/18 at 18:00 Pantoprazole (Protonix Iv) 40 mg BID@06,18 IV Last administered on 11/10/18 18:07; Admin Dose 40 MG; Start 11/06/18 at 18:00 Total Parenteral Nutrition 1,000 ml @ 65 mls/hr [id number] IV Last administered on 11/11/18 12:53; Admin Dose 65 MLS/HR; Start 11/08/18 at 15:00 Diagnostic Test (Pha) (Accu-Chek) 1 ea Q12 XX Last administered on 11/11/18 08:43; Admin Dose 1 EA; Start 11/10/18 at 09:00 Lubiprostone (Amitiza) 24 mcg BID PO Last administered on 11/10/18 09:40; Admin Dose 24 MCG; Start 11/10/18 at 09:00 Cholestyramine Resin (Questran) 1 pkt DAILY PO ; Start 11/12/18 at 09:00 DEVAN MACE November 11, 2018 14:41
[2018-11-11 15:16] VITALS: BP 110/62; PULSE 106; RESP 18
[2018-11-11 19:40] VITALS: BP 119/81; PULSE 120; RESP 22
[2018-11-12 00:10] VITALS: BP 104/66; PULSE 116; RESP 20
[2018-11-12] MEDS: TPN 1,000 ML IV SCH (05:02)
[2018-11-12] MEDS: PANTOPRAZOLE 40 MG INJ IV SCH (06:01)
[2018-11-12] MEDS: CREON (24K-76K-120K) 1 CAP PO SCH ×3 (07:50→17:55)
[2018-11-12 08:03] VITALS: BP 105/69; PULSE 118; RESP 20
[2018-11-12] MEDS: FAT EMULSION 20% 250 ML IV SCH (09:00)
[2018-11-12] MEDS: METOCLOPRAMIDE 10 MG INJ IV SCH ×3 (09:00→18:15)
[2018-11-12] MEDS: LUBIPROSTONE 24 MCG CAP PO SCH ×2 (09:00→21:00)
[2018-11-12] MEDS: CHOLESTYRAMINE 4 GM PACKET PO SCH (09:00)
[2018-11-12] MEDS: ACCU-CHEK XX SCH (09:00)
--- NOTE | 2018-11-12 09:58 | CONS ---
Assessment/Plan Assessment/Plan Assessment/Plan (Daily) MRI MPRESSION: Multiple hepatic T2 bright lesions, over 20 which may represent metastatic disease or multifocal HCC. Recommend follow-up imaging with liver mass protocol MRI. Gallbladder is distended with layering debris representing sludge or small stones. No evidence of biliary duct obstruction. Mild ascites. Poor performance status Malnutrition Waxing and waning mental status MRI noted as above Low albumin and protein levels Anemia Thrombocytopenia Leukocytosis ECOG 3-4 Extremely poor prognosis agree that patient should be hospice care. Will speak to family members once again if okay with Dr. Hamilton. Consultation Date/Type/Reason Admit Date/Time November 05, 2018 at 23:47 Initial Consult Date Date/Time of Note DATE: 11/12/18 TIME: 09:53 24 HR Interval Summary Free Text/Dictation Patient is barely responsive to me today I asked a question he is goes right back to sleep however he denies pain. Spoke to patient's nurse states his mental status waxes and wanes he was unable to swallow yesterday during speech evaluation, will be repeated today. Exam/Review of Systems Exam Vitals Vital Signs Date Temp Pulse Resp B/P (MAP) Pulse Ox O2 O2 Flow FiO2 Time Delivery Rate 11/12/18 97.5 118 20 105/69 97 Room Air 08:03 (81) 11/12/18 2.0 00:14 Intake and Output 11/11/18 11/11/18 11/12/18 1515:00 23:00 07:00 IntakeIntake Total 1120 ml 428 ml 822 ml OutputOutput Total 450 ml 800 ml BalanceBalance 1120 ml -22 ml 22 ml Constitutional: frail, other (Emaciated) Psych: confusion Head: atraumatic, other (Facial atrophy) Eyes: nl conjunctiva, EOMI, nl lids, nl sclera, PERRL, other (Sunken right eye orbital ecchymosis) Respiratory: clear to auscultation, normal air movement Cardiovascular: regular rate and rhythm, nl pulses Extremities: other (Initiated, thin, nontender) Neurological: confused, lethargic, other (respond to simple commands) Results Result Diagram: 11/08/18 0450 11/12/18 0415 Results 24hrs Laboratory Tests Test 11/12/18 04:11 11/12/18 09:02 Sodium Level 140 Potassium Level 3.7 Chloride Level 108 Carbon Dioxide Level 27 Anion Gap 5 Blood Urea Nitrogen 20 Creatinine 0.36 L Est Glomerular Filtrat Rate mL/min > 60 Glucose Level 118 Calcium Level 11.6 H Phosphorus Level 3.0 Magnesium Level 2.0 Bedside Glucose 148 Medications Medication Current Medications Acetaminophen/ Hydrocodone Bitart ([place] ()) 1 tab Q6H PRN PO MODERATE PAIN LEVEL 4-6 Last administered on 11/09/18 09:51; Admin Dose 1 TAB; Start 11/06/18 at 02:30 Zolpidem Tartrate (Ambien) 10 mg HS PRN PO INSOMNIA; Start 11/06/18 at 02:30 Amylase/Lipase/ Protease (Creon ([id number])) 1 cap WITH MEALS PO Last administered on 11/10/18 18:08; Admin Dose 1 CAP; Start 11/06/18 at 08:00 Miscellaneous Information (Pending Santyl Order For Wound Care) This patient kingsley... PRN PRN XX WOUND CARE; Start 11/06/18 at 05:00 Ondansetron HCl (Zofran Inj) 4 mg Q6H PRN IV NAUSEA AND/OR VOMITING; Start 11/06/18 at 07:00 Morphine Sulfate (morphine) 2 mg Q4H PRN IV SEVERE PAIN LEVEL 7-10 Last administered on 11/10/18 11:06; Admin Dose 2 MG; Start 11/06/18 at 12:00 Fat Emulsion Intravenous 250 ml @ 21 mls/hr DAILY IV Last administered on 11/12/18 09:00; Admin Dose 21 MLS/HR; Start 11/06/18 at 16:00 Metoclopramide HCl (Reglan) 5 mg WITH MEALS IV Last administered on 11/12/18 09:00; Admin Dose 5 MG; Start 11/06/18 at 18:00 Pantoprazole (Protonix Iv) 40 mg BID@06,18 IV Last administered on 11/12/18 06:01; Admin Dose 40 MG; Start 11/06/18 at 18:00 Total Parenteral Nutrition 1,000 ml @ 65 mls/hr [id number] IV Last administered on 11/12/18 05:02; Admin Dose 65 MLS/HR; Start 11/08/18 at 15:00 Diagnostic Test (Pha) (Accu-Chek) 1 ea Q12 XX Last administered on 11/11/18at 08:43; Admin Dose 1 EA; Start 11/10/18 at 09:00 Lubiprostone (Amitiza) 24 mcg BID PO Last administered on 11/10/18at 09:40; Admin Dose 24 MCG; Start 11/10/18 at 09:00 Cholestyramine Resin (Questran) 1 pkt DAILY PO ; Start 11/12/18 at 09:00 SPRING RASHEED November 12, 2018 09:58
--- NOTE | 2018-11-12 14:12 | PN ---
Date/Time of Note Date/Time of Note DATE: 11/12/18 TIME: 14:11 Assessment/Plan VTE Prophylaxis Risk score (from Ns)>0 risk: 3 [place] applied [place] [facility] Yes Pharmacological prophylaxis: NA/contraindicated Pharm contraindication: blood coag disorder Assessment/Plan Hospital Course 1. Pancreatic cancer stage IV Patient had been receiving chemotherapy but is currently on hold secondary to poor functional status and cachexia Patient's is still not sure about placing workers compensation defense attorney is following Status post ERCP with stent placement GI consultation appreciated Ultrasound of the abdomen shows no CBD dilation Palliative care consultation appreciated 2. Cachexia with debility secondary to pancreatic cancer TPN PT eval 3. Delirium secondary to comorbidities Monitor 4. Right periorbital edema No clear history of trauma Monitor 5. Leucocytosis likely secondary to Neulasta UA chest x-ray are normal Cultures are negative 6. Hx of DVT 7. Hypercalcemia 2/2 to cancer 8. Bicytopenia with anemia and thrombocytopenia secondary to malignancy Monitor DC planning: Patient with poor functional status with inability to ambulate, palliative care consultation appreciated, continue discussing goals of care with , currently believes the patient is improving although he continues to decline Result Diagram: 11/08/18 0455 11/12/18 0411 Results 24hrs Laboratory Tests Test 11/12/18 04:11 11/12/18 09:02 Sodium Level 140 Potassium Level 3.7 Chloride Level 108 Carbon Dioxide Level 27 Anion Gap 5 Blood Urea Nitrogen 20 Creatinine 0.36 L Est Glomerular Filtrat Rate mL/min > 60 Glucose Level 118 Calcium Level 11.6 H Phosphorus Level 3.0 Magnesium Level 2.0 Bedside Glucose 148 Subjective 24 Hr Interval Summary Constitutional: disoriented Exam/Review of Systems Exam Vitals Vital Signs Date Temp Pulse Resp B/P (MAP) Pulse Ox O2 O2 Flow FiO2 Time Delivery Rate 11/12/18 97.5 118 20 105/69 97 Room Air 08:03 (81) 11/12/18 2.0 00:14 Intake and Output 11/11/18 11/11/18 11/12/18 1515:00 23:00 07:00 IntakeIntake Total 1120 ml 428 ml 822 ml OutputOutput Total 450 ml 800 ml BalanceBalance 1120 ml -22 ml 22 ml Psych: confusion Respiratory: clear to auscultation Cardiovascular: regular rate and rhythm Gastrointestinal: soft; No distended Musculoskeletal: nl extremities to inspection Results Results 24hrs Laboratory Tests Test 11/12/18 04:11 11/12/18 09:02 Sodium Level 140 Potassium Level 3.7 Chloride Level 108 Carbon Dioxide Level 27 Anion Gap 5 Blood Urea Nitrogen 20 Creatinine 0.36 L Est Glomerular Filtrat Rate mL/min > 60 Glucose Level 118 Calcium Level 11.6 H Phosphorus Level 3.0 Magnesium Level 2.0 Bedside Glucose 148 Medications Medication Current Medications Acetaminophen/ Hydrocodone Bitart ([place] ()) 1 tab Q6H PRN PO MODERATE PAIN LEVEL 4-6 Last administered on 11/09/18 09:51; Admin Dose 1 TAB; Start 11/06/18 at 02:30 Zolpidem Tartrate (Ambien) 10 mg HS PRN PO INSOMNIA; Start 11/06/18 at 02:30 Amylase/Lipase/ Protease (Creon ([id number])) 1 cap WITH MEALS PO Last administered on 11/10/18 18:08; Admin Dose 1 CAP; Start 11/06/18 at 08:00 Miscellaneous Information (Pending Santyl Order For Wound Care) This patient h a... PRN PRN XX WOUND CARE; Start 11/06/18 at 05:00 Ondansetron HCl (Zofran Inj) 4 mg Q6H PRN IV NAUSEA AND/OR VOMITING; Start 11/06/18 at 07:00 Morphine Sulfate (morphine) 2 mg Q4H PRN IV SEVERE PAIN LEVEL 7-10 Last administered on 11/10/18 11:06; Admin Dose 2 MG; Start 11/06/18 at 12:00 Fat Emulsion Intravenous 250 ml @ 21 mls/hr DAILY IV Last administered on 11/12/18 09:00; Admin Dose 21 MLS/HR; Start 11/06/18 at 16:00 Metoclopramide HCl (Reglan) 5 mg WITH MEALS IV Last administered on 11/12/18 09:00; Admin Dose 5 MG; Start 11/06/18 at 18:00 Pantoprazole (Protonix Iv) 40 mg BID@06,18 IV Last administered on 11/12/18 06:01; Admin Dose 40 MG; Start 11/06/18 at 18:00 Total Parenteral Nutrition 1,000 ml @ 65 mls/hr [id number] IV Last administered on 11/12/18at 05:02; Admin Dose 65 MLS/HR; Start 11/08/18 at 15:00 Diagnostic Test (Pha) (Accu-Chek) 1 ea Q12 XX Last administered on 11/11/18at 08:43; Admin Dose 1 EA; Start 11/10/18 at 09:00 Lubiprostone (Amitiza) 24 mcg BID PO Last administered on 11/10/18at 09:40; Admin Dose 24 MCG; Start 11/10/18 at 09:00 Cholestyramine Resin (Questran) 1 pkt DAILY PO ; Start 11/12/18 at 09:00 DEVAN MACE November 12, 2018 14:12
[2018-11-12 15:02] VITALS: BP 119/75; PULSE 106; RESP 20
[2018-11-12 21:10] VITALS: BP 111/73; PULSE 128; RESP 20
[2018-11-13] MEDS: morphine 2 MG INJ IV PRN (01:28)
[2018-11-13 02:50] VITALS: BP 107/76; PULSE 122; RESP 18
[2018-11-13 07:28] VITALS: BP 103/67; PULSE 113; RESP 18
[2018-11-13] MEDS: CREON (24K-76K-120K) 1 CAP PO SCH ×3 (08:30→17:55)
[2018-11-13] MEDS: CHOLESTYRAMINE 4 GM PACKET PO SCH (09:00)
[2018-11-13] MEDS: LUBIPROSTONE 24 MCG CAP PO SCH ×2 (09:00→20:47)
[2018-11-13] MEDS: METOCLOPRAMIDE 10 MG INJ IV SCH ×3 (09:38→17:55)
[2018-11-13 13:55] VITALS: BP 94/66; PULSE 120; RESP 18
[2018-11-13] MEDS ORDERED: TPN 1,000 ML IV SCH (15:06)
[2018-11-13] MEDS ORDERED: FAT EMULSION 20% 250 ML IV SCH (15:30)
--- NOTE | 2018-11-13 17:03 | CONS ---
Assessment/Plan Assessment/Plan Assessment/Plan (Daily) Interval hx: Denies abd pain, denies nausea, . WBC stable in low 30s. HH stable. LFTS downtrending but still elevated. RN put pt on 2 L NC because she felt he was having hard time breathing. [id number] okay. per RN had trouble swallowing pills and continues to have diarrhea 1. Pancreatic cancer stage IV. Patient is on chemo. 2. Cachexia. 3. Weight loss. Malnutrition 4. Anorexia. 5. Leukocytosis, most probably related to Neulasta, but again cholangitis cannot be absolutely ruled out. 6. Status post ERCP, placement of stent. 7. Chronic liver disease 8. Abnormal LFT. -trending up -denies abd pain -Ultrasound of the biliary system shows CBD to be 4.5 mm -AFP wnl -MRCP shows Multiple hepatic T2 bright lesions, over 20 which may represent metastatic disease or multifocal HCC. Recommend follow-up imaging with liver mass protocol MRI. 9. Insomnia. 10. diarrhea MRCP: IMPRESSION: Multiple hepatic T2 bright lesions, over 20 which may represent metastatic disease or multifocal HCC. Recommend follow-up imaging with liver mass protocol MRI. Gallbladder is distended with layering debris representing sludge or small stones. No evidence of biliary duct obstruction. Mild ascites. 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 Patient and is agreed to proceed with the placement of G-tube for long-term enteral nutrition Consultation Date/Type/Reason Admit Date/Time November 05, 2018 at 23:47 Initial Consult Date Date/Time of Note DATE: 11/13/18 TIME: 17:01 24 HR Interval Summary Constitutional: poor po, requiring IVF Exam/Review of Systems Exam Vitals Vital Signs Date Temp Pulse Resp B/P (MAP) Pulse Ox O2 O2 Flow FiO2 Time Delivery Rate 11/13/18 97.2 120 18 94/66 (75) 96 Room Air 13:55 Nasal Cannula 11/13/18 2.0 08:00 Intake and Output 11/12/18 11/12/18 11/13/18 1414:59 22:59 06:59 IntakeIntake Total 1037 ml OutputOutput Total 300 ml 550 ml BalanceBalance 737 ml -550 ml Constitutional: frail ENMT: nl external ears & nose Neck: supple Respiratory: clear to auscultation Gastrointestinal: soft, nl liver, spleen, non-tender Extremities: normal pulses Results Result Diagram: 11/12/18 0411 Medications Medication Current Medications Acetaminophen/ Hydrocodone Bitart ([place] ()) 1 tab Q6H PRN PO MODERATE PAIN LEVEL 4-6 Last administered on 11/09/18at 09:51; Admin Dose 1 TAB; Start 11/06/18 at 02:30 Zolpidem Tartrate (Ambien) 10 mg HS PRN PO INSOMNIA; Start 11/06/18 at 02:30 Amylase/Lipase/ Protease (Creon ([id number])) 1 cap WITH MEALS PO Last administered on 11/10/18at 18:08; Admin Dose 1 CAP; Start 11/06/18 at 08:00 Miscellaneous Information (Pending [facility] Order For Wound Care) This patient kingsley... PRN PRN XX WOUND CARE; Start 11/06/18 at 05:00 Ondansetron HCl (Zofran Inj) 4 mg Q6H PRN IV NAUSEA AND/OR VOMITING; Start 11/06/18 at 07:00 Morphine Sulfate (morphine) 2 mg Q4H PRN IV SEVERE PAIN LEVEL 7-10 Last administered on 11/13/18at 01:28; Admin Dose 2 MG; Start 11/06/18 at 12:00 Metoclopramide HCl (Reglan) 5 mg WITH MEALS IV Last administered on 11/13/18at 09:38; Admin Dose 5 MG; Start 11/06/18 at 18:00 Lubiprostone (Amitiza) 24 mcg BID PO Last administered on 11/10/18at 09:40; Admin Dose 24 MCG; Start 11/10/18 at 09:00 Cholestyramine Resin (Questran) 1 pkt DAILY PO ; Start 11/12/18 at 09:00 Diagnostic Test (Pha) (Accu-Chek) 1 ea Q4 XX ; Start 11/13/18 at 17:00 Fat Emulsion Intravenous 250 ml @ 10.4 mls/hr DAILY IV ; Start 11/13/18 at 15:30 Total Parenteral Nutrition 1,000 ml @ 65 mls/hr [id number] IV ; Start 11/13/18 at 17:00 TORIBIO NGUYEN MD November 13, 2018 17:03
--- NOTE | 2018-11-13 17:21 | PN ---
Date/Time of Note Date/Time of Note DATE: 11/13/18 TIME: 17:17 Assessment/Plan VTE Prophylaxis Risk score (from Ns)>0 risk: 8 Pharmacological prophylaxis: NA/contraindicated Pharm contraindication: blood coag disorder Assessment/Plan Hospital Course 1. 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 Cachexia with debility secondary to pancreatic cancer TPN and feeding tube this coming Thursday PT eval 3. Delirium secondary to comorbidities Monitor 4. Right periorbital edema No clear history of trauma Monitor 5. Leucocytosis likely secondary to Neulasta UA chest x-ray are normal Cultures are negative 6. Hx of DVT 7. Hypercalcemia 2/2 to cancer 8. Bicytopenia with anemia and thrombocytopenia secondary to malignancy Monitor DC planning: Feeding tube placement plan for this coming Thursday and subsequent placement in a skilled nursing after that Result Diagram: 11/12/18 0411 Subjective 24 Hr Interval Summary Constitutional: no complaints Exam/Review of Systems Exam Vitals Vital Signs Date Temp Pulse Resp B/P (MAP) Pulse Ox O2 O2 Flow FiO2 Time Delivery Rate 11/13/18 97.2 120 18 94/66 (75) 96 Room Air 13:55 Nasal Cannula 11/13/18 2.0 08:00 Intake and Output 11/12/18 11/12/18 11/13/18 1414:59 22:59 06:59 IntakeIntake Total 1037 ml OutputOutput Total 300 ml 550 ml BalanceBalance 737 ml -550 ml Constitutional: alert Psych: confusion Respiratory: clear to auscultation Cardiovascular: regular rate and rhythm Gastrointestinal: soft; No distended Musculoskeletal: nl extremities to inspection Medications Medication Current Medications Acetaminophen/ Hydrocodone Bitart ([place] (10/325)) 1 tab Q6H PRN PO MODERATE PAIN LEVEL 4-6 Last administered on 11/09/18 09:51; Admin Dose 1 TAB; Start 11/06/18 at 02:30 Zolpidem Tartrate (Ambien) 10 mg HS PRN PO INSOMNIA; Start 11/06/18 at 02:30 Amylase/Lipase/ Protease (Creon ([id number])) 1 cap WITH MEALS PO Last administered on 11/10/18 18:08; Admin Dose 1 CAP; Start 11/06/18 at 08:00 Miscellaneous Information (Pending Santyl Order For Wound Care) This patient kingsley... PRN PRN XX WOUND CARE; Start 11/06/18 at 05:00 Ondansetron HCl (Zofran Inj) 4 mg Q6H PRN IV NAUSEA AND/OR VOMITING; Start 11/06/18 at 07:00 Morphine Sulfate (morphine) 2 mg Q4H PRN IV SEVERE PAIN LEVEL 7-10 Last administered on 11/13/18 01:28; Admin Dose 2 MG; Start 11/06/18 at 12:00 Metoclopramide HCl (Reglan) 5 mg WITH MEALS IV Last administered on 11/13/18at 09:38; Admin Dose 5 MG; Start 11/06/18 at 18:00 Lubiprostone (Amitiza) 24 mcg BID PO Last administered on 11/10/18at 09:40; Admin Dose 24 MCG; Start 11/10/18 at 09:00 Cholestyramine Resin (Questran) 1 pkt DAILY PO ; Start 11/12/18 at 09:00 Diagnostic Test (Pha) (Accu-Chek) 1 ea Q4 XX ; Start 11/13/18 at 17:00 Fat Emulsion Intravenous 250 ml @ 10.4 mls/hr DAILY IV ; Start 11/13/18 at 15:30 Total Parenteral Nutrition 1,000 ml @ 65 mls/hr [id number] IV ; Start 11/13/18 at 17:00 DVEAN MACE November 13, 2018 17:21
[2018-11-13] MEDS: ACCU-CHEK XX SCH ×2 (18:00→20:48)
[2018-11-13] MEDS: TPN 1,000 ML IV SCH (18:14)
[2018-11-13 19:15] VITALS: BP 102/68; PULSE 89; RESP 18
[2018-11-14] MEDS: ACCU-CHEK XX SCH ×6 (00:52→20:33)
[2018-11-14 01:28] VITALS: BP 126/68; RESP 20
[2018-11-14] MEDS ORDERED: SOD CHLORIDE 0.9% 500 ML IV ONE (07:00)
[2018-11-14] MEDS: CREON (24K-76K-120K) 1 CAP PO SCH ×3 (07:50→17:55)
[2018-11-14] MEDS: METOCLOPRAMIDE 10 MG INJ IV SCH ×3 (07:50→18:00)
[2018-11-14] MEDS: CHOLESTYRAMINE 4 GM PACKET PO SCH (09:00)
[2018-11-14] MEDS: LUBIPROSTONE 24 MCG CAP PO SCH ×2 (09:00→20:33)
[2018-11-14 09:04] VITALS: BP 136/93; PULSE 119; RESP 18
[2018-11-14] MEDS: TPN 1,000 ML IV SCH (09:43)
--- NOTE | 2018-11-14 12:01 | PN ---
Date/Time of Note Date/Time of Note DATE: 11/14/18 TIME: 11:58 Assessment/Plan VTE Prophylaxis Risk score (from Ns)>0 risk: 3 Pharmacological prophylaxis: NA/contraindicated Pharm contraindication: surgical contra Assessment/Plan Hospital Course 1. 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 Cachexia with debility secondary to pancreatic cancer TPN and feeding tube this coming Thursday PT eval 3. Delirium secondary to comorbidities Monitor 4. Right periorbital edema No clear history of trauma Monitor 5. Leucocytosis likely secondary to underlying malignancy UA chest x-ray are normal Cultures are negative 6. Hx of DVT 7. Hypercalcemia 2/2 to cancer 8. Bicytopenia with anemia and thrombocytopenia secondary to malignancy Monitor DC planning: Feeding tube placement this coming Thursday and subsequent placement in a prison after that Result Diagram: 11/14/18 0423 11/14/18 0423 Results 24hrs Laboratory Tests Test 11/13/18 18:04 11/13/18 20:45 11/14/18 00:50 11/14/18 04:23 Bedside Glucose 96 122 178 White Blood Count 41.0 #H Red Blood Count 2.51 L Hemoglobin 7.5 L Hematocrit 23.1 L Mean Corpuscular 92.0 Volume Mean Corpuscular 29.9 Hemoglobin Mean Corpuscular 32.5 Hemoglobin Concent Red Cell 18.1 H Distribution Width Platelet Count 171 # Mean Platelet Volume 12.3 H Immature 2.000 H Granulocytes % Neutrophils % Segmented 89 H Neutrophils % (Manual) Band Neutrophils % 7 H (Manual) Lymphocytes % Lymphocytes % 1 L (Manual) Monocytes % Monocytes % (Manual) 3 Eosinophils % Basophils % Nucleated Red Blood 0.0 Cells % Immature 0.820 H Granulocytes # Neutrophils # Neutrophils # 37.6 H (Manual) Band Neutrophils # 2.8 H Lymphocytes (Manual) 0.4 L Lymphocytes # Monocytes # Monocytes # (Manual) 1.2 H Eosinophils # Basophils # Nucleated Red Blood Cells # Platelet Estimate NORMAL Giant Platelets 1 H Polychromasia 2+ Poikilocytosis 1+ Anisocytosis 2+ Macrocytosis 2+ Target Cells 1+ Sodium Level 145 H Potassium Level 3.8 Chloride Level 110 Carbon Dioxide Level 33 H Anion Gap 2 L Blood Urea Nitrogen 44 H Creatinine 0.52 L Est Glomerular > 60 Filtrat Rate mL/min Glucose Level 170 Calcium Level 15.0 *H Phosphorus Level 3.7 Magnesium Level 2.4 Aspartate Amino 142 H Transf (AST/SGOT) Alkaline Phosphatase 430 H Prealbumin < 3.0 L Triglycerides Level 184 H Test 11/14/18 05:26 11/14/18 09:36 Bedside Glucose 207 180 Subjective 24 Hr Interval Summary Constitutional: disoriented Exam/Review of Systems Exam Vitals Vital Signs Date Temp Pulse Resp B/P (MAP) Pulse Ox O2 O2 Flow FiO2 Time Delivery Rate 11/14/18 98.3 119 18 136/93 99 Room Air 09:04 (107) 11/13/18 2.0 19:43 Intake and Output 11/13/18 11/13/18 11/14/18 1515:00 23:00 07:00 IntakeIntake Total 320 ml 1050 ml OutputOutput Total 700 ml 800 ml BalanceBalance -380 ml 250 ml Constitutional: alert Psych: confusion Respiratory: clear to auscultation Cardiovascular: regular rate and rhythm Gastrointestinal: soft; No distended Musculoskeletal: nl extremities to inspection Results Results 24hrs Laboratory Tests Test 11/13/18 18:04 11/13/18 20:45 11/14/18 00:50 11/14/18 04:23 Bedside Glucose 96 122 178 White Blood Count 41.0 #H Red Blood Count 2.51 L Hemoglobin 7.5 L Hematocrit 23.1 L Mean Corpuscular 92.0 Volume Mean Corpuscular 29.9 Hemoglobin Mean Corpuscular 32.5 Hemoglobin Concent Red Cell 18.1 H Distribution Width Platelet Count 171 # Mean Platelet Volume 12.3 H Immature 2.000 H Granulocytes % Neutrophils % Segmented 89 H Neutrophils % (Manual) Band Neutrophils % 7 H (Manual) Lymphocytes % Lymphocytes % 1 L (Manual) Monocytes % Monocytes % (Manual) 3 Eosinophils % Basophils % Nucleated Red Blood 0.0 Cells % Immature 0.820 H Granulocytes # Neutrophils # Neutrophils # 37.6 H (Manual) Band Neutrophils # 2.8 H Lymphocytes (Manual) 0.4 L Lymphocytes # Monocytes # Monocytes # (Manual) 1.2 H Eosinophils # Basophils # Nucleated Red Blood Cells # Platelet Estimate NORMAL Giant Platelets 1 H Polychromasia 2+ Poikilocytosis 1+ Anisocytosis 2+ Macrocytosis 2+ Target Cells 1+ Sodium Level 145 H Potassium Level 3.8 Chloride Level 110 Carbon Dioxide Level 33 H Anion Gap 2 L Blood Urea Nitrogen 44 H Creatinine 0.52 L Est Glomerular > 60 Filtrat Rate mL/min Glucose Level 170 Calcium Level 15.0 *H Phosphorus Level 3.7 Magnesium Level 2.4 Aspartate Amino 142 H Transf (AST/SGOT) Alkaline Phosphatase 430 H Prealbumin < 3.0 L Triglycerides Level 184 H Test 11/14/18 05:26 11/14/18 09:36 Bedside Glucose 207 180 Medications Medication Current Medications Acetaminophen/ Hydrocodone Bitart ([place] ()) 1 tab Q6H PRN PO MODERATE PAIN LEVEL 4-6 Last administered on 11/09/18 09:51; Admin Dose 1 TAB; Start 11/06/18 at 02:30 Zolpidem Tartrate (Ambien) 10 mg HS PRN PO INSOMNIA; Start 11/06/18 at 02:30 Amylase/Lipase/ Protease (Creon ([id number])) 1 cap WITH MEALS PO Last administered on 11/10/18 18:08; Admin Dose 1 CAP; Start 11/06/18 at 08:00 Miscellaneous Information (Pending Santyl Order For Wound Care) This patient kingsley... PRN PRN XX WOUND CARE; Start 11/06/18 at 05:00 Ondansetron HCl (Zofran Inj) 4 mg Q6H PRN IV NAUSEA AND/OR VOMITING; Start 11/06/18 at 07:00 Morphine Sulfate (morphine) 2 mg Q4H PRN IV SEVERE PAIN LEVEL 7-10 Last administered on 11/13/18 01:28; Admin Dose 2 MG; Start 11/06/18 at 12:00 Metoclopramide HCl (Reglan) 5 mg WITH MEALS IV Last administered on 11/13/18at 09:38; Admin Dose 5 MG; Start 11/06/18 at 18:00 Lubiprostone (Amitiza) 24 mcg BID PO Last administered on 11/10/18at 09:40; Admin Dose 24 MCG; Start 11/10/18 at 09:00 Cholestyramine Resin (Questran) 1 pkt DAILY PO ; Start 11/12/18 at 09:00 Diagnostic Test (Pha) (Accu-Chek) 1 ea Q4 XX ; Start 11/13/18 at 17:00 Total Parenteral Nutrition 1,000 ml @ 65 mls/hr [id number] IV Last administered on 11/14/18at 09:43; Admin Dose 65 MLS/HR; Start 11/13/18 at 17:00 Fat Emulsion Intravenous 250 ml @ 10.4 mls/hr Q24H IV ; Start 11/14/18 at 18:00 DEVAN MACE November 14, 2018 12:01
[2018-11-14] MEDS ORDERED: FAT EMULSION 20% 250 ML IV SCH (18:00)
[2018-11-14 19:55] VITALS: BP 123/81; PULSE 90; RESP 20
[2018-11-15] VITALS (12 sets, daily range): BP systolic 90–107; BP diastolic 57–75; PULSE 121–137; RESP 18–26
[2018-11-15] MEDS: TPN 1,000 ML IV SCH (00:55)
[2018-11-15] MEDS: ACCU-CHEK XX SCH ×2 (00:58→05:00)
[2018-11-15] MEDS: morphine 2 MG INJ IV PRN ×2 (03:29→09:35)
[2018-11-15] MEDS ORDERED: ALBUTEROL/IPRATROPIUM (NEB) 3 ML AMP HHN PRN (04:30)
--- NOTE | 2018-11-15 07:18 | CONS ---
Assessment/Plan Assessment/Plan Hospital Course (Demo Recall) Brief dictation Kennedyon dictation is down.. History of stage 4 pancreatic cancer. S/P multiple rounds of chemo Malnutrition, dehydration failure to thrive Transaminitis Assessment/Plan (Daily) I am barely able to wake up patient today. Nursing states that he had some periods of time throughout the night that he was more lucid. He is not complaining of pain he does not appear to be suffering but he does appear to be rapidly deteriorating. Last I spoke to his she is insisting on trying to get them transferred to a higher level of care for experimental treatment. We d oubt that patient will be accepted we hope he dies a non-suffering end-of-life and will contrive to support patients throughout the dying process. Consultation Date/Type/Reason Admit Date/Time November 05, 2018 at 23:47 Initial Consult Date Date/Time of Note DATE: 11/15/18 TIME: 07:16 24 HR Interval Summary Free Text/Dictation Post dated note for visit 11/13 I am barely able to wake up patient today. Nursing states that he had some periods of time throughout the night that he was more lucid. He is not complaining of pain he does not appear to be suffering but he does appear to be rapidly deteriorating. Last I spoke to his she is insisting on trying to get them transferred to a higher level of care for experimental treatment. We doubt that patient will be accepted we hope he dies a non-suffering end-of-life and will contrive to support patients throughout the dying process. Exam/Review of Systems Exam Vitals Vital Signs Date Temp Pulse Resp B/P (MAP) Pulse Ox O2 O2 Flow FiO2 Time Delivery Rate 11/15/18 15.0 05:16 11/15/18 100 100 05:16 11/15/18 128 22 Non 05:16 Rebreather Mask 11/15/18 98.8 107/75 02:02 (86) Intake and Output 11/14/18 11/14/18 11/15/18 1515:00 23:00 07:00 IntakeIntake Total 785 ml 635 ml OutputOutput Total 1000 ml 800 ml BalanceBalance 785 ml -365 ml -800 ml Results Result Diagram: 11/15/18 0438 11/15/18 0438 Results 24hrs Laboratory Tests Test 11/14/18 09:36 11/14/18 12:57 11/14/18 17:59 11/14/18 20:32 Bedside Glucose 180 190 187 208 Test 11/15/18 00:57 11/15/18 04:38 Bedside Glucose 227 H White Blood Count 41.3 H Red Blood Count 2.35 L Hemoglobin 7.0 L Hematocrit 21.9 L Mean Corpuscular 93.2 Volume Mean Corpuscular 29.8 Hemoglobin Mean Corpuscular 32.0 Hemoglobin Concent Red Cell 18.4 H Distribution Width Platelet Count 118 #L Mean Platelet Volume 12.6 H Immature 1.800 H Granulocytes % Neutrophils % 90.8 H Lymphocytes % 2.7 L Monocytes % 4.4 Eosinophils % 0.1 Basophils % 0.2 Nucleated Red Blood 0.1 H Cells % Immature 0.750 H Granulocytes # Neutrophils # 37.5 H Lymphocytes # 1.1 Monocytes # 1.8 H Eosinophils # 0.0 Basophils # 0.1 Nucleated Red Blood 0.0 Cells # Sodium Level 148 H Potassium Level 3.2 L Chloride Level 113 H Carbon Dioxide Level 32 H Anion Gap 3 L Blood Urea Nitrogen 45 H Creatinine 0.51 L Est Glomerular > 60 Filtrat Rate mL/min Glucose Level 154 Calcium Level 14.5 *H Phosphorus Level 3.1 Magnesium Level 2.1 Aspartate Amino 135 H Transf (AST/SGOT) Alanine 103 H Aminotransferase (AL T/SGPT) Medications Medication Current Medications Acetaminophen/ Hydrocodone Bitart ([place] (10/325)) 1 tab Q6H PRN PO MODERATE PAIN LEVEL 4-6 Last administered on 11/09/18at 09:51; Admin Dose 1 TAB; Start 11/06/18 at 02:30 Zolpidem Tartrate (Ambien) 10 mg HS PRN PO INSOMNIA; Start 11/06/18 at 02:30 Amylase/Lipase/ Protease (Creon ([id number])) 1 cap WITH MEALS PO Last administered on 11/10/18at 18:08; Admin Dose 1 CAP; Start 11/06/18 at 08:00 Miscellaneous Information (Pending Santyl Order For Wound Care) This patient kingsley... PRN PRN XX WOUND CARE; Start 11/06/18 at 05:00 Ondansetron HCl (Zofran Inj) 4 mg Q6H PRN IV NAUSEA AND/OR VOMITING; Start 11/06/18 at 07:00 Morphine Sulfate (morphine) 2 mg Q4H PRN IV SEVERE PAIN LEVEL 7-10 Last administered on 11/15/18 03:29; Admin Dose 2 MG; Start 11/06/18 at 12:00 Metoclopramide HCl (Reglan) 5 mg WITH MEALS IV Last administered on 11/14/18 18:00; Admin Dose 5 MG; Start 11/06/18 at 18:00 Lubiprostone (Amitiza) 24 mcg BID PO Last administered on 11/10/18 09:40; Admin Dose 24 MCG; Start 11/10/18 at 09:00 Cholestyramine Resin (Questran) 1 pkt DAILY PO ; Start 11/12/18 at 09:00 Diagnostic Test (Pha) (Accu-Chek) 1 ea Q4 XX Last administered on 11/15/18 00:58; Admin Dose 1 EA; Start 11/13/18 at 17:00 Total Parenteral Nutrition 1,000 ml @ 65 mls/hr [id number] IV Last administered on 11/15/18 00:55; Admin Dose 65 MLS/HR; Start 11/13/18 at 17:00 Fat Emulsion Intravenous 250 ml @ 10.4 mls/hr Q24H IV Last administered on 11/14/18 17:15; Admin Dose 10.4 MLS/HR; Start 11/14/18 at 18:00 Albuterol/ Ipratropium (Duoneb) 3 ml Q3H RESP THERAPY PRN HHN SHORTNESS OF BREATH; Start 11/15/18 at 04:30 SPRING RASHEED November 15, 2018 07:18
[2018-11-15] MEDS: CREON (24K-76K-120K) 1 CAP PO SCH (07:50)
--- NOTE | 2018-11-15 07:51 | CONS ---
Assessment/Plan Assessment/Plan Hospital Course (Demo Recall) 63 yo male, s/p fall with failure to thrive Interval hx: WBC 41. HH 7.0/21.9, Jaundice appearance, O2 83% on 15L non rebreather FM. Weak cough, difficulty clearing phlegm. K 3.1. HR 120-130s intermittently overnight. 1. Pancreatic cancer stage IV. Patient is on chemo. 2. Cachexia. 3. Weight loss. Malnutrition 4. Anorexia. 5. Leukocytosis, most probably related to Neulasta, but again cholangitis cannot be absolutely ruled out. 6. Status post ERCP, placement of stent. 7. Chronic liver disease 8. Abnormal LFT. -trending up -denies abd pain -Ultrasound of the biliary system shows CBD to be 4.5 mm -AFP wnl -MRCP shows Multiple hepatic T2 bright lesions, over 20 which may represent metastatic disease or multifocal HCC. Recommend follow-up imaging with liver mass protocol MRI. 9. Insomnia. 10. diarrhea MRCP: IMPRESSION: Multiple hepatic T2 bright lesions, over 20 which may represent metastatic disease or multifocal HCC. Recommend follow-up imaging with liver mass protocol MRI. Gallbladder is distended with layering debris representing sludge or small stones. No evidence of biliary duct obstruction. Mild ascites. Plan Pt was planned for PEG today but we hold off since patient is not stable. His O2 sat 83% on 15 l nonrebreather, he is getting breathing treatments, he is lethargic. INR stat Continue TPN and lipids Pt examined and plan of care discussed with Dr. Benavides Consultation Date/Type/Reason Admit Date/Time November 05, 2018 at 23:47 Initial Consult Date Date/Time of Note DATE: 11/15/18 TIME: 07:40 Exam/Review of Systems Exam Vitals Vital Signs Date Temp Pulse Resp B/P (MAP) Pulse Ox O2 O2 Flow FiO2 Time Delivery Rate 11/15/18 15.0 05:16 11/15/18 100 100 05:16 11/15/18 128 22 Non 05:16 Rebreather Mask 11/15/18 98.8 107/75 02:02 (86) Intake and Output 11/14/18 11/14/18 11/15/18 1414:59 22:59 06:59 IntakeIntake Total 785 ml 635 ml OutputOutput Total 1000 ml 800 ml BalanceBalance 785 ml -365 ml -800 ml Head: normocephalic Eyes: PERRL, other (resolving rt orbital ecchymosis) Respiratory: congested cough, diminished breath sounds Gastrointestinal: soft, non-tender Musculoskeletal: other (cachexia) Neurological: lethargic Results Result Diagram: 11/15/18 0438 11/15/18 0438 Results 24hrs Laboratory Tests Test 11/14/18 09:36 11/14/18 12:57 11/14/18 17:59 11/14/18 20:32 Bedside Glucose 180 190 187 208 Test 11/15/18 00:57 11/15/18 04:38 Bedside Glucose 227 H White Blood Count 41.3 H Red Blood Count 2.35 L Hemoglobin 7.0 L Hematocrit 21.9 L Mean Corpuscular 93.2 Volume Mean Corpuscular 29.8 Hemoglobin Mean Corpuscular 32.0 Hemoglobin Concent Red Cell 18.4 H Distribution Width Platelet Count 118 #L Mean Platelet Volume 12.6 H Immature 1.800 H Granulocytes % Neutrophils % 90.8 H Lymphocytes % 2.7 L Monocytes % 4.4 Eosinophils % 0.1 Basophils % 0.2 Nucleated Red Blood 0.1 H Cells % Immature 0.750 H Granulocytes # Neutrophils # 37.5 H Lymphocytes # 1.1 Monocytes # 1.8 H Eosinophils # 0.0 Basophils # 0.1 Nucleated Red Blood 0.0 Cells # Sodium Level 148 H Potassium Level 3.2 L Chloride Level 113 H Carbon Dioxide Level 32 H Anion Gap 3 L Blood Urea Nitrogen 45 H Creatinine 0.51 L Est Glomerular > 60 Filtrat Rate mL/min Glucose Level 154 Calcium Level 14.5 *H Phosphorus Level 3.1 Magnesium Level 2.1 Aspartate Amino 135 H Transf (AST/SGOT) Alanine 103 H Aminotransferase (AL T/SGPT) Medications Medication Current Medications Acetaminophen/ Hydrocodone Bitart ([place] (10/325)) 1 tab Q6H PRN PO MODERATE PAIN LEVEL 4-6 Last administered on 11/09/18at 09:51; Admin Dose 1 TAB; Start 11/06/18 at 02:30 Zolpidem Tartrate (Ambien) 10 mg HS PRN PO INSOMNIA; Start 11/06/18 at 02:30 Amylase/Lipase/ Protease (Creon ([id number])) 1 cap WITH MEALS PO Last administered on 11/10/18 18:08; Admin Dose 1 CAP; Start 11/06/18 at 08:00 Miscellaneous Information (Pending [facility] Order For Wound Care) This patient kingsley... PRN PRN XX WOUND CARE; Start 11/06/18 at 05:00 Ondansetron HCl (Zofran Inj) 4 mg Q6H PRN IV NAUSEA AND/OR VOMITING; Start 11/06/18 at 07:00 Morphine Sulfate (morphine) 2 mg Q4H PRN IV SEVERE PAIN LEVEL 7-10 Last administered on 11/15/18 03:29; Admin Dose 2 MG; Start 11/06/18 at 12:00 Metoclopramide HCl (Reglan) 5 mg WITH MEALS IV Last administered on 11/14/18 18:00; Admin Dose 5 MG; Start 11/06/18 at 18:00 Lubiprostone (Amitiza) 24 mcg BID PO Last administered on 11/10/18 09:40; Admin Dose 24 MCG; Start 11/10/18 at 09:00 Cholestyramine Resin (Questran) 1 pkt DAILY PO ; Start 11/12/18 at 09:00 Diagnostic Test (Pha) (Accu-Chek) 1 ea Q4 XX Last administered on 11/15/18 00:58; Admin Dose 1 EA; Start 11/13/18 at 17:00 Total Parenteral Nutrition 1,000 ml @ 65 mls/hr [id number] IV Last administered on 11/15/18 00:55; Admin Dose 65 MLS/HR; Start 11/13/18 at 17:00 Fat Emulsion Intravenous 250 ml @ 10.4 mls/hr Q24H IV Last administered on 11/14/18 17:15; Admin Dose 10.4 MLS/HR; Start 11/14/18 at 18:00 Albuterol/ Ipratropium (Duoneb) 3 ml Q3H RESP THERAPY PRN HHN SHORTNESS OF BREATH; Start 11/15/18 at 04:30 ASH RITTER November 15, 2018 07:51
[2018-11-15] MEDS: CHOLESTYRAMINE 4 GM PACKET PO SCH (09:00)
[2018-11-15] MEDS: LUBIPROSTONE 24 MCG CAP PO SCH (09:00)
[2018-11-15] MEDS: morphine (DRIP) 100 MG/100 ML 100 ML IV SCH ×2 (10:55→17:32)
--- NOTE | 2018-11-15 11:40 | PN ---
Date/Time of Note Date/Time of Note DATE: 11/15/18 TIME: 11:37 Assessment/Plan VTE Prophylaxis Risk score (from Ns)>0 risk: 4 SCD applied (from Ns): Yes Pharmacological prophylaxis: heparin Lines/Catheters IV Catheter Type (from Nrsg): Central Line Central line still needed: Yes Urinary Cath still in place: Yes Reason Cath still needed: urinary retention Assessment/Plan Hospital Course 63 yo male wtih advanced pancreatic cancer with multiorgan failure, now on comfort care/hospice measures - Comfort care only - Morphine, benzos PRN Result Diagram: 11/15/18 0438 11/15/18 0438 Results 24hrs Laboratory Tests Test 11/14/18 12:57 11/14/18 17:59 11/14/18 20:32 11/15/18 00:57 Bedside Glucose 190 187 208 227 H Test 11/15/18 04:38 11/15/18 08:28 White Blood Count 41.3 H Red Blood Count 2.35 L Hemoglobin 7.0 L Hematocrit 21.9 L Mean Corpuscular 93.2 Volume Mean Corpuscular 29.8 Hemoglobin Mean Corpuscular 32.0 Hemoglobin Concent Red Cell 18.4 H Distribution Width Platelet Count 118 #L Mean Platelet Volume 12.6 H Immature 1.800 H Granulocytes % Neutrophils % 90.8 H Lymphocytes % 2.7 L Monocytes % 4.4 Eosinophils % 0.1 Basophils % 0.2 Nucleated Red Blood 0.1 H Cells % Immature 0.750 H Granulocytes # Neutrophils # 37.5 H Lymphocytes # 1.1 Monocytes # 1.8 H Eosinophils # 0.0 Basophils # 0.1 Nucleated Red Blood 0.0 Cells # Sodium Level 148 H Potassium Level 3.2 L Chloride Level 113 H Carbon Dioxide Level 32 H Anion Gap 3 L Blood Urea Nitrogen 45 H Creatinine 0.51 L Est Glomerular > 60 Filtrat Rate mL/min Glucose Level 154 Calcium Level 14.5 *H Phosphorus Level 3.1 Magnesium Level 2.1 Aspartate Amino 135 H Transf (AST/SGOT) Alanine 103 H Aminotransferase (AL T/SGPT) Prothrombin Time 18.5 H Prothrombin Time 1.4 Ratio INR International 1.53 Normalized Ratio Subjective 24 Hr Interval Summary Free Text/Dictation Patient is markedly hypoxic with worsening lab profile and encephelopathy I discussed case with his Lelo at bedside and discussed how he is in the dying process. She agrees to comfort care measures at this time. Exam/Review of Systems Exam Vitals Vital Signs Date Temp Pulse Resp B/P (MAP) Pulse Ox O2 O2 Flow FiO2 Time Delivery Rate 11/15/18 Non 15.0 09:00 Rebreather 11/15/18 98.1 130 18 90/57 (68) 98 08:33 11/15/18 100 05:16 Intake and Output 11/14/18 11/14/18 11/15/18 1414:59 22:59 06:59 IntakeIntake Total 785 ml 635 ml 949.8 ml OutputOutput Total 1000 ml 800 ml BalanceBalance 785 ml -365 ml 149.8 ml Exam Cachectic Encephelopathic Tachypneic Rhoncorous Jaundiced No distress or pain Results Results 24hrs Laboratory Tests Test 11/14/18 12:57 11/14/18 17:59 11/14/18 20:32 11/15/18 00:57 Bedside Glucose 190 187 208 227 H Test 11/15/18 04:38 11/15/18 08:28 White Blood Count 41.3 H Red Blood Count 2.35 L Hemoglobin 7.0 L Hematocrit 21.9 L Mean Corpuscular 93.2 Volume Mean Corpuscular 29.8 Hemoglobin Mean Corpuscular 32.0 Hemoglobin Concent Red Cell 18.4 H Distribution Width Platelet Count 118 #L Mean Platelet Volume 12.6 H Immature 1.800 H Granulocytes % Neutrophils % 90.8 H Lymphocytes % 2.7 L Monocytes % 4.4 Eosinophils % 0.1 Basophils % 0.2 Nucleated Red Blood 0.1 H Cells % Immature 0.750 H Granulocytes # Neutrophils # 37.5 H Lymphocytes # 1.1 Monocytes # 1.8 H Eosinophils # 0.0 Basophils # 0.1 Nucleated Red Blood 0.0 Cells # Sodium Level 148 H Potassium Level 3.2 L Chloride Level 113 H Carbon Dioxide Level 32 H Anion Gap 3 L Blood Urea Nitrogen 45 H Creatinine 0.51 L Est Glomerular > 60 Filtrat Rate mL/min Glucose Level 154 Calcium Level 14.5 *H Phosphorus Level 3.1 Magnesium Level 2.1 Aspartate Amino 135 H Transf (AST/SGOT) Alanine 103 H Aminotransferase (AL T/SGPT) Prothrombin Time 18.5 H Prothrombin Time 1.4 Ratio INR International 1.53 Normalized Ratio Medications Medication Current Medications Acetaminophen/ Hydrocodone Bitart ([place] (10)) 1 tab Q6H PRN PO MODERATE PAIN LEVEL 4-6 Last administered on 11/09/18 09:51; Admin Dose 1 TAB; Start 11/06/18 at 02:30 Zolpidem Tartrate (Ambien) 10 mg HS PRN PO INSOMNIA; Start 11/06/18 at 02:30 Amylase/Lipase/ Protease (Creon ([id number])) 1 cap WITH MEALS PO Last administered on 11/10/18 18:08; Admin Dose 1 CAP; Start 11/06/18 at 08:00 Miscellaneous Information (Pending Santyl Order For Wound Care) This patient kingsley... PRN PRN XX WOUND CARE; Start 11/06/18 at 05:00 Ondansetron HCl (Zofran Inj) 4 mg Q6H PRN IV NAUSEA AND/OR VOMITING; Start 11/06/18 at 07:00 Morphine Sulfate (morphine) 2 mg Q4H PRN IV SEVERE PAIN LEVEL 7-10 Last administered on 11/15/18at 09:35; Admin Dose 2 MG; Start 11/06/18 at 12:00 Lubiprostone (Amitiza) 24 mcg BID PO Last administered on 11/10/18 09:40; Admin Dose 24 MCG; Start 11/10/18 at 09:00 Cholestyramine Resin (Questran) 1 pkt DAILY PO ; Start 11/12/18 at 09:00 Albuterol/ Ipratropium (Duoneb) 3 ml Q3H RESP THERAPY PRN HHN SHORTNESS OF BREATH; Start 11/15/18 at 04:30 Metoclopramide HCl (Reglan) 5 mg Q8 IV ; Start 11/15/18 at 14:00 Morphine Sulfate/ Sodium Chloride 100 ml @ 1 mls/hr TITRATE IV Last administered on 11/15/18at 10:55; Admin Dose 1 MLS/HR; Start 11/15/18 at 10:00 KESHIA HOLLOWAY MD November 15, 2018 11:40
[2018-11-15] MEDS ORDERED: LORAZEPAM 2 MG INJ IV PRN (12:00)
[2018-11-15] MEDS ORDERED: ACCU-CHEK XX SCH (12:00)
[2018-11-15] MEDS ORDERED: METOCLOPRAMIDE 10 MG INJ IV SCH (14:00)
--- NOTE | 2018-11-16 01:09 | EN ---
Date/Time of Note Date/Time of Note DATE: 11/16/18 TIME: 01:07 Event Note Medicine Medicine Event Note Pronouncement note Patient seen and examined at the bedside. Patient nonresponsive to vigorous sternal rub. Patient nonresponsive to verbal stimuli. Pupils fixed and dilated and nonreactive to light bilaterally. No heart sounds appreciated on auscultation. No visible chest rise. Patient pronounced at approximately 1:04 AM. present at the bedside. Primary team aware. NAYELY PEREZ November 16, 2018 01:09
--- NOTE | 2018-11-17 17:10 | DES ---
Date/Time of Note Date/Time of Note DATE: 11/17/18 TIME: 17:07 Discharge/ Summary Admission/Discharge Info Admit Date/Time November 05, 2018 at 23:47 Final Diagnosis Pancreatic cancer Preliminary Cause of Pancreatic cancer Hospital Course 63 yo male wtih advanced pancreatic cancer with multiorgan failure, now on comfort care/hospice measures He had advanced respiratory, worsening renal failure, hypercalcemia, multiorgan failure. Grave prognosis communicated to his who agreed to hos pice/palliative care. Patient was kept comfortable. Morhpine administered. He passed overnight. Pronounced by overnight staff. KESHIA HOLLOWAY MD November 17, 2018 17:10
== END 2018-11-16 03:30 | disposition expired | DRG 435 ==
LOC: 6WM 23:47 → MS1 11-10 06:42
PROVIDERS: ADMIT Internal Medicine; ATTEND Internal Medicine
DX: C25.9 Malignant neoplasm of pancreas, unspecified (principal); E43 Unspecified severe protein-calorie malnutrition; C79.51 Secondary malignant neoplasm of bone; Z68.1 Body mass index [BMI] 19.9 or less, adult; F05 Delirium due to known physiological condition; G93.40 Encephalopathy, unspecified; E83.52 Hypercalcemia; E86.0 Dehydration; G47.00 Insomnia, unspecified; K76.9 Liver disease, unspecified; R62.7 Adult failure to thrive; D63.0 Anemia in neoplastic disease; Z86.718 Personal history of other venous thrombosis and embolism; Z66 Do not resuscitate; H05.221 Edema of right orbit; E80.6 Other disorders of bilirubin metabolism; Z92.21 Personal history of antineoplastic chemotherapy; F17.200 Nicotine dependence, unspecified, uncomplicated; D72.829 Elevated white blood cell count, unspecified; D69.59 Other secondary thrombocytopenia; R74.0 Nonspecific elevation of levels of transaminase and lactic acid dehydrogenase [LDH]; Z51.5 Encounter for palliative care; R09.02 Hypoxemia
CPT/HCPCS: 71045; 74018; 74181; 76705; 80048; 80053; 81001; 81003; 82105; 82962; 83735; 84075; 84100; 84134; 84450; 84460; 84478; 85025; 85610; 87081; 92526; 92610; 93005; 97110; 97162; 97164; 97530; C9113; J0692; J0696; J2060; J2270; J2765; J7040; J7042